=== PATIENT | male | born 1985 | race Caucasian/White ===

== ENCOUNTER 2021-02-23 08:37 | Outpatient (REF) | payer MEDICARE, SELFPAY ==
[2021-02-23 11:42] LABS: Appearance Urine CLEAR; Glucose Urine UA NEG (NEG); Leukocyte Esterase Urine NEG (NEG); Nitrite Urine NEG (NEG); PH 6.5 (5.0-8.0); Specific Gravity - Urine <= 1.005 (1.005-1.025); Urine Blood NEG (NEG); Urine Ketones NEG (NEG); Urine Protein NEG (NEG-TRACE)
[2021-02-23 11:44] LABS: Color Urine COLORLESS
[2021-02-23 12:04] LABS: Alanine Aminotransferase 37 U/L (0-40); Albumin Level 4.3 g/dL (3.5-5.0); Alkaline Phosphatase 76 U/L (39-117); Anion Gap 10 (12-20); Aspartate Amino Transferase 25 U/L (5-37); Bilirubin Total 0.6 mg/dL (0.0-1.0); Blood Urea Nitrogen 14 mg/dL (9-16); Calcium 9.4 mg/dL (8.4-10.2); Carbon Dioxide 27 mmol/L (22-29); Chloride 105 mmol/L (96-108); Cholesterol 199 mg/dL; Estimated Glomerular Filt Rate > 60; Glucose Fasting 90 mg/dL (60-99); HDL Cholesterol 42 mg/dL; LDL Cholesterol Calculated 130 mg/dl; Potassium 4.2 mmol/L (3.3-5.1); Sodium 138 mmol/L (135-145); Total Protein 6.9 g/dL (6.5-8.0); Triglycerides 137 mg/dL
[2021-02-23 12:07] LABS: TSH reflex Free T4 1.48 uIU/mL (0.32-4.0)
== END 2021-02-23 08:38 | disposition home or self-care (01) ==
LOC: HO.HMGCLDS 08:37
PROVIDERS: PCP Nurse Practitioner Family; Visit Provider Nurse Practitioner Family
DX: Z00.00 Encounter for general adult medical examination without abnormal findings (principal)
CPT/HCPCS: 36415; 80053; 80061; 81003; 84443

== ENCOUNTER 2022-02-27 08:12 | Outpatient (REF) | payer BC, SELFPAY ==
[2022-02-27 11:16] LABS: MANUAL DIFF FLAG NO
[2022-02-27 11:27] LABS: Basophils Percent Auto 0.5 % (0-2); Eosinophils Absolute Auto 0.1 X10*3/uL (0.0-0.4); Eosinophils Percent Auto 2.2 % (0-4); Hematocrit 47.4 % (42.0-52.0); Hemoglobin 15.9 g/dl (14.0-18.0); Imm Gran Abs Auto 0.02 X10*3/uL (0.00-0.03); Imm Gran Pct Auto 0.4 % (0.0-0.4); Lymphocytes Absolute Auto 1.4 X10*3/uL (1.2-4.9); Lymphocytes Percent Auto 26.4 % (20-40); Mean Corpuscular HGB Conc 33.5 g/dl (31.0-36.0); Mean Corpuscular Hemoglobin 29.7 pg (27.0-33.0); Mean Corpuscular Volume 88.4 fL (80.0-98.0); Mean Platelet Volume 10.7 fL (9.4-12.4); Monocytes Absolute Auto 0.6 X10*3/uL (0.1-1.2); Monocytes Percent Auto 10.1 % (2-11); Neutrophils Absolute Auto 3.3 x10*3/uL (2.0-8.3); Neutrophils Percent Auto 60.4 % (45-73); Platelet Count 269 X10*3/uL (160-400); Red Blood Count 5.36 X10*6/uL (4.60-5.80); Red Cell Distribution Width 12.4 % (11.0-16.0); White Blood Count 5.5 X10*3/uL (4.8-10.8)
[2022-02-27 11:43] LABS: Appearance Urine Clear; Color Urine Yellow; Glucose Urine UA Negative (Negative); Leukocyte Esterase Urine Negative (Negative); Nitrite Urine Negative (Negative); PH 6.5 (5.0-9.0); Urine Blood Negative (Negative); Urine Ketones Negative (Negative); Urine Protein Negative (Neg-Trace)
[2022-02-27 11:59] LABS: Alanine Aminotransferase 35 U/L (0-40); Albumin Level 4.5 g/dL (3.5-5.0); Alkaline Phosphatase 90 U/L (39-117); Anion Gap 11 (12-20); Aspartate Amino Transferase 27 U/L (5-37); Bilirubin Total 0.6 mg/dL (0.0-1.0); Blood Urea Nitrogen 14 mg/dL (9-16); Calcium 9.5 mg/dL (8.4-10.2); Carbon Dioxide 26 mmol/L (22-29); Chloride 105 mmol/L (96-108); Cholesterol 188 mg/dL; Estimated Glomerular Filt Rate > 60; Glucose Fasting 95 mg/dL (60-99); HDL Cholesterol 41 mg/dL; LDL Cholesterol Calculated 113 mg/dl; Potassium 4.1 mmol/L (3.3-5.1); Sodium 138 mmol/L (135-145); TSH reflex Free T4 1.49 uIU/mL (0.32-4.0); Total Protein 7.3 g/dL (6.5-8.0); Triglycerides 171 mg/dL
[2022-03-01 19:49] LABS: Follicle Stimulating Hormone 1.3 mIU/mL (1.6-8.0)
[2022-03-06 15:09] LABS: Testosterone, Free 70.8 pg/mL (35.0-155.0); Testosterone, Total 409 ng/dL (250-1100)
== END 2022-02-27 08:13 | disposition home or self-care (01) ==
LOC: HO.HMGCLDS 08:12
PROVIDERS: PCP Nurse Practitioner Family; Visit Provider Nurse Practitioner Family
DX: Z00.00 Encounter for general adult medical examination without abnormal findings (principal); N52.9 Male erectile dysfunction, unspecified
CPT/HCPCS: 36415; 80053; 80061; 81003; 83001; 83002; 84402; 84403; 84443; 85025

== ENCOUNTER → 2022-05-02 12:49 | Outpatient (BNVA) | payer BC, SELFPAY | PROVIDERS: PCP Nurse Practitioner Family; Visit Provider Nurse Practitioner Family | DX: Z13.89 Encounter for screening for other disorder (principal) ==

== ENCOUNTER → 2022-05-14 08:41 | Outpatient (BNVA) | payer BC, SELFPAY | PROVIDERS: PCP Nurse Practitioner Family; Visit Provider Nurse Practitioner Family | DX: Z13.89 Encounter for screening for other disorder (principal) ==

== ENCOUNTER → 2022-05-29 09:02 | Outpatient (REF) | payer BC, SELFPAY | LOC: HO.SL 09:02 | PROVIDERS: PCP Nurse Practitioner Family; Visit Provider Nurse Practitioner Family | DX: G47.33 Obstructive sleep apnea (adult) (pediatric) (principal); R06.83 Snoring; I10 Essential (primary) hypertension | CPT/HCPCS: 95806 ==

== ENCOUNTER 2022-08-08 08:09 | Outpatient (REF) | payer BC, SELFPAY ==
[2022-08-16 23:13] LABS: Estradiol Ultra Sensitive 24 pg/mL (< OR = 29)
[2022-08-27 13:49] LABS: Testosterone, Total 300 ng/dL (250-1100)
== END 2022-08-08 08:10 | disposition home or self-care (01) ==
LOC: HO.HMGCLDS 08:09
PROVIDERS: Nurse Practitioner Family; PCP Nurse Practitioner Family; Visit Provider Nurse Practitioner Family
DX: N52.9 Male erectile dysfunction, unspecified (principal)
CPT/HCPCS: 36415; 82670; 84402; 84403

== ENCOUNTER → 2022-08-14 08:53 | Outpatient (BNVA) | payer BC, SELFPAY | PROVIDERS: PCP Nurse Practitioner Family; Visit Provider Nurse Practitioner Family ==

== ENCOUNTER 2022-11-15 09:28 | Outpatient (AMB) | payer BC, SELFPAY ==
--- NOTE | 2022-11-15 09:34 | A.OFFVIS_ITS ---
Intake Vital Signs 11/15/22 09:36 Weight 297 lb BP 128/86 Blood Pressure Location Lt brachial Position Sitting Pulse 68 Pulse Source Pulse Oximeter Pulse Oximetry (%) 98 Oxygen Delivery Method Room Air Intake Visit Reasons: Snoring follow up-Confirmed Intake Note: F/U sleep apnea Slasher Required: No Allergies No Known Allergies Allergy (Verified 11/15/22 09:34) HPI HPI Comments History of Present Illness Details 37 y/o male patient presents for follow up of sleep study. The home sleep study result was significant for mild degree of sleep apena. The AHI was 5/hr and oxygen hernán was 85%. Pt started APAP [id number]. The CPAP compliance and therapy response (10/16/22-) reviewed. The usage days 40% and the average usage hours 6 hrs. Pt reports he traveled to and forgot to bring CPAP. Pt states that he sleeps much better, not waking up in the middle of night and having more energy during daytime when he uses CPAP at night. Sometimes he falls asleep without CPAP when he sleeps with his son. [facility] Surgical History History of repair of vocal cord Social History (Updated 11/15/22 @ 09:36 by Mirna Núñez [facility]) Housing: House Alcohol intake: current Patient Tobacco Use Status: Current someday Tobacco user Tobacco use type: Cigar Cigarette Packs Per Day: 1 e-Cigarette/Vaping Use: Never Used Second Hand Smoke Exposure: No service: No Current occupational status: employed Current occupation: [employer] Current occupational exposures/hazards: No Cognitive needs: No Hearing needs: No Vision needs: No Review of Systems Const All systems reviewed & are unremarkable except as noted in HPI and below ENT Reports Normal hearing present Neuro Reports Normal hearing present Physical Exam Vital Signs: Last Vital Signs Pulse 68 11/15/22 09:36 BP 128/86 11/15/22 09:36 Pulse Ox 98 11/15/22 09:36 Oxygen Delivery Method Room Air 11/15/22 09:36 Const General: cooperative Nutritional Appearance: obese Orientation/consciousness: patient oriented x3 HEENT Throat: Yes other (mallampati grade 3) Neck Neck: Yes full ROM and Yes supple Resp Effort & Inspection: normal respiratory effort and able to speak in complete sentences Neuro General: patient oriented x3, gait normal and moves all extremities Cranial nerves: Yes Bilaterally intact EOM present, Yes Normal facial strength present, Yes Midline tongue present, Yes Symmetric palate elevation present, Yes Normal hearing present and Yes Ability to bilaterally rotate head present Cognition (Neuro): normal cognition Gait exam (Neuro): Normal gait present Motor exam (neuro): 5/5 motor strength present throughout, Pronator motor function not present and no tremor noted Psych Appearance: grossly normal Speech and movement: Normal speech and movement present Affect: normal affect Assessment & Plan Assessment & Plan (1) ALEXA (obstructive sleep apnea): Comment: Mild degree of sleep apnea. The AHI was 5/hr and oxygen hernán was 85%. Code(s): G47.33 - Obstructive sleep apnea (adult) (pediatric) Plan Advised patient to continue to use APAP [id number] as patient experiences good clinical effects. Stressed compliance, use CPAP nightly and more than 4hrs. Clean mask and tubing regularly. Wt reduction advised. Coding Level of Care Code Est Pt Level 3 (55584) Diagnoses ALEXA (obstructive sleep apnea) G47.33
[2022-11-15 09:36] VITALS: BP 128/86; PULSE 68; O2SAT 98
== END 2022-11-15 09:49 | disposition home or self-care (01) ==
PROVIDERS: PCP Nurse Practitioner Family; Visit Provider Nurse Practitioner Family
DX: G47.33 Obstructive sleep apnea (adult) (pediatric) (principal)
CPT/HCPCS: 99213

== ENCOUNTER → 2022-11-15 09:28 | Outpatient (BNVA) | payer BC, SELFPAY | PROVIDERS: PCP Nurse Practitioner Family; Visit Provider Nurse Practitioner Family ==

== ENCOUNTER 2023-02-11 09:12 | Outpatient (AMB) | payer BC, SELFPAY ==
--- NOTE | 2023-02-11 09:16 | MHC.OFFVIS ---
Intake Intake Visit Reasons: 6 month follow up Intake Note: Patient is present for follow up erectile dysfunction Urology Medications: tadalafil Blood Thinner: none Artificial Limb Fitter Required: No Accompanied by: Self / Same As Patient Allergies No Known Allergies Allergy (Verified 02/11/23 09:55) Medication List - Last Reconciled 02/11/23 by KAMRYN Garcia tadalafil (Cialis) 5 mg PO DAILY 90 days HPI HPI Comments History of Present Illness Details Michael is a pleasant 37 year old male patient of Dr. Mar. Has a past medical history of sleep apnea. Patient presents to the office today follow-up of his erectile dysfunction. In discussion with the patient today he reports to be doing and feeling well. He reports noting significant improvement in maintaining erections with 5 mg of Cialis daily however has recently ran out of refills. He otherwise offers no issues or concerns at this time. He denies urinary urgency, urinary frequency, incontinence, nocturia, hematuria, dysuria, foul smelling urine, changes to urinary stream, flank pain, fever, and or chills. He discusses at length his 's upcoming gynecological appointments regarding abnormal findings noted on recent bankruptcy legal assistant exam. He discusses since last visit he has also lost approximately 30 lb. He continues to work with compliance of CPAP machine. He denies any issues with his urination. In office urinalysis results reviewed with the patient today. Discussed at length the importance of diet control as well as regular exercise to further assist with weight management. Discussed the affects of being overweight and potential cause of ED by damaging blood vessels, decreasing testosterone, and causing general inflammation throughout the body. Discussed overweight can cause damage to blood vessels due to associated hypertension, diabetes, and hypercholesteremia as well as many other issues. Previous labs are as follows: 03/01 FSH--1.3 LH--2.0 Total Testosterone-- 409 Free Testosterone-- 70.8 08/30-- Estradiol--24 Total testosterone--300 Free testosterone--57.0 He otherwise offers no issues or concerns at this time. [facility] Surgical History History of repair of vocal cord Social History Housing: House Alcohol intake: current Patient Tobacco Use Status: Current someday Tobacco user Tobacco use type: Cigar Cigarette Packs Per Day: 1 e-Cigarette/Vaping Use: Never Used Second Hand Smoke Exposure: No service: No Current occupational status: employed Current occupation: [employer] Current occupational exposures/hazards: No Cognitive needs: No Hearing needs: No Vision needs: No Review of Systems Const All systems reviewed & are unremarkable except as noted in HPI and below Reports as per HPI Eyes Reports no additional complaints ENT Reports no additional complaints Card Reports no additional complaints Resp Reports no additional complaints GI Reports no additional complaints Reports as per HPI Musc Reports no additional complaints Neuro Reports no additional complaints Psych Reports no additional complaints Endo Reports no additional complaints Jaren/Lymph Reports no additional complaints Aller/Immun Reports no additional complaints Physical Exam Const General: cooperative, healthy appearing, comfortable, no acute distress, well developed, alert and awake Nutritional Appearance: overweight Orientation/consciousness: patient oriented x3 Limitations: no limitations HEENT Head: Yes normal to inspection, Yes normocephalic and Yes atraumatic Ears: hearing grossly normal bilaterally Eyes General: appearance normal, both eyes and all related structures Neck Neck: Yes normal visual inspection and Yes trachea midline Chest Chest palpation & inspection: normal inspection of the chest Resp Effort & Inspection: normal respiratory effort and able to speak in complete sentences Cardio Rate: regular rate GI Inspection: Yes normal to inspection General: Yes no CVA tenderness Back/Spine/Pelvis Back: no CVA tenderness Skin General skin exam: no rashes or lesions noted Neuro General: patient oriented x3 Extrem General: Yes normal to inspection Psych Appearance: grossly normal and well kempt Mental Status: mental status grossly normal Speech and movement: Normal speech and movement present and Clear speech present Affect: normal affect Attitude: cooperative Thought process: Normal thought process present Thought content: Normal thought content present Insight: Fair insight present (Psych) Judgement: Fair judgement present (Psych) Results AMB Urinalysis, Automated UA Leukoctes 0 Marla/uL Last Edit by Eugenio Easton on 02/11/23 09:35 UA Nitrite Negative Last Edit by Eugenio Easton on 02/11/23 09:35 UA Urobilinogen 0.2 mg/dL Last Edit by Eugenio Easton on 02/11/23 09:35 UA Protein 0 mg/dL Last Edit by Eugenio Easton on 02/11/23 09:35 UA pH 7.5 Last Edit by Andrewnicola Sarahyennifer on 02/11/23 09:35 UA Blood 0 Esteban/uL Last Edit by Eugenio Sarahyennifer on 02/11/23 09:35 UA Specific [place] 1.010 Last Edit by Eugenio Easton on 02/11/23 09:35 UA Ketone Negative Last Edit by Eugenio Sarahyennifer on 02/11/23 09:35 UA Bilirubin 0 mg/dL Last Edit by Eugenio Sarahyennifer on 02/11/23 09:35 UA Glucose 0 mg/dL Last Edit by Eugenio Easton on 02/11/23 09:35 Results Reviewed Results Reviewed: Laboratory Last Values Urine pH (Auto) 7.5 02/11/23 09:23 Specific [place] (Auto) 1.010 02/11/23 09:23 Urine Protein (Auto) 0 mg/dL 02/11/23 09:23 Glucose (UA)(Auto) 0 mg/dL 02/11/23 09:23 Urine Ketones (Auto) Negative 02/11/23 09:23 Urine Blood (Auto) 0 Esteban/uL 02/11/23 09:23 Urine Nitrite (Auto) Negative 02/11/23 09:23 Urine Bilirubin (Auto) 0 mg/dL 02/11/23 09:23 Urine Urobilinogen (Auto) 0.2 mg/dL 02/11/23 09:23 Leukocyte Esterase (Auto) 0 Marla/uL 02/11/23 09:23 Assessment & Plan Assessment & Plan (1) Erectile dysfunction: Code(s): N52.9 - Male erectile dysfunction, unspecified Plan In office urinalysis results reviewed with the patient today; as noted above. Patient reports significant improvement and erectile dysfunction symptoms on low-dose Cialis; Continue with lifestyle modifications of adequate sleep, weight management, exercise, and compliance with CPAP machine Continue Cialis 5 mg daily; refill provided Testosterone free and total in 6 months Follow-up in 6 months with labs to be completed prior; if not sooner with any issues, concerns, and or questions. Orders: Orders AMB Urinalysis Automated Today Z13.9 - Encounter for screening, unspecified Testosterone, Free/Total 6 Months E11.69 - Type 2 diabetes mellitus with other specified complication, N52.1 - Erectile dysfunction due to diseases classified elsewhere Medications: Refilled tadalafil (Cialis) [facility] [id number] 5 mg PO DAILY 90 days 90 tabs 4RF Patient Instructions: The patient had an opportunity to ask questions regarding the treatment plan. All questions were answered. Physical exam, labs, and imaging were discussed and reviewed in detail. As well as risks, benefits, and discussion of treatment choices. No major barriers to understanding were identified. The patient expressed understanding and agreement with the above treatment plan. The patient was made aware they should contact our office by phone for worsening of their current condition, the appearance of new symptoms, or with any questions or concerns. Compliance is encouraged with any medications and follow up testing that is ordered. It is a privilege to be allowed the opportunity to participate in? your urological care.? Again, if you have any questions or concerns If you have any questions or concerns please do not hesitate to contact me. The office is [phone]. This note is constructed using voice recognition software. While every effort has been made to ensure accuracy chief digital media officer errors may have been included. Yours sincerely, KAMRYN Garcia Coding Level of Care Code Est Pt Level 3 (45782) Diagnoses Erectile dysfunction N52.9
== END 2023-02-11 09:54 | disposition home or self-care (01) ==
PROVIDERS: PCP Nurse Practitioner Family; Visit Provider Nurse Practitioner Family
DX: N52.9 Male erectile dysfunction, unspecified (principal); Z13.9 Encounter for screening, unspecified
CPT/HCPCS: 99213

== ENCOUNTER → 2023-02-11 09:12 | Outpatient (BNVA) | payer BC, SELFPAY | PROVIDERS: PCP Nurse Practitioner Family; Visit Provider Nurse Practitioner Family | DX: N52.9 Male erectile dysfunction, unspecified (principal); Z79.899 Other long term (current) drug therapy | CPT/HCPCS: 81003 ==

== ENCOUNTER 2023-03-05 07:23 | Outpatient (AMB) | payer BC, SELFPAY ==
--- NOTE | 2023-03-05 07:26 | A.OFFPC_ITS ---
Vital Signs 03/05/23 07:29 Height 6 ft 3 in Weight 309 lb BMI 38.6 BP 122/80 Blood Pressure Location Rt brachial Position Sitting Pulse 82 Pulse Source Pulse Oximeter Pulse Oximetry (%) 97 Oxygen Delivery Method Room Air Intake Visit Reasons: annual PE Intake Note: Patient here for physical exam. Allergies No Known Allergies Allergy (Verified 03/05/23 08:02) Medication List - Last Reconciled 03/05/23 by KAMRYN Oliveros tadalafil (Cialis) 5 mg PO DAILY 90 days Tobacco use date assessed: 08/28/22 Dental Screening Dental Screen Date: 03/05/23 Did you have a dental visit in the last 12 months?: Yes Did you have a dental problem in the last 6 months where you did not have access to dental care?: No Was dental information given to patient?: Patient has dentist HPI annual PE HPI Details Pt is here for a PE. Labs have already been ordered. [facility] Surgical History History of repair of vocal cord Social History Housing: House Alcohol intake: current Patient Tobacco Use Status: Current someday Tobacco user Tobacco use type: Cigar Cigarette Packs Per Day: 1 e-Cigarette/Vaping Use: Never Used Second Hand Smoke Exposure: No service: No Current occupational status: employed Current occupation: [employer] Current occupational exposures/hazards: No Cognitive needs: No Hearing needs: No Vision needs: No Questionnaire Thrive Questionnaire Date Thrive assessed: 02/27/22 I am a: Patient What is your living situation today?: I have a steady place to live Within the past 12 months, did the food you bought not last and you didn't have the money to get more?: Never true Within the past 12 months, did you worry whether your food would run out before you got money to buy more?: Never true AUDIT C Alcohol Use Questionnaire (AUDIT-C) 1. How often do you have a drink containing alcohol?: 4 or more times a week 2. How many drinks containing alcohol do you have on a typical day when you are drinking?: 1 or 2 3. How often do you have six or more drinks on one occasion?: Less than monthly Total Score: 5 Score Reviewed/Action Taken: Yes ASHOK-7 AMB Questionnaire ASHOK-7 Date ASHOK - 7 assessed: 02/27/22 Feeling nervous, anxious, or on edge: 0 = Not at all Not being able to stop or control worryin = Several days Worrying too much about different things: 0 = Not at all Trouble relaxin = Not at all Being so restless that it is hard to sit still: 0 = Not at all Becoming easily annoyed or irritable: 1 = Several days Feeling afraid as if something awful might happen: 0 = Not at all Total ASHOK-7 score (0-4 normal; 5-9 mild; 10-14 moderate; 15-21 severe): 2 Source: Developed by Drs. Raheel Parish, Smitha Suazo, Eric Guy and colleagues, with an educational daryl from [employer]. Review of Systems Const Denies chills and Denies fever(s) Eyes Denies blurry vision ENT Denies vertigo, Denies dizziness and Denies sore throat Card Denies chest pain at rest, Denies chest pain with activity, Denies diaphoresis, Denies dyspnea and Denies dyspnea on exertion Resp Denies cough, Denies dyspnea, Denies dyspnea on exertion and Denies wheezing GI Denies abdominal pain, Denies melena, Denies hematochezia, Denies constipation, Denies diarrhea and Denies loose stools Denies hematuria Musc Denies numbness and Denies tingling Skin/Breast Denies lesions Neuro Denies vertigo, Denies dizziness, Denies numbness and Denies tingling Psych Denies anxiety, Denies depression, Denies homicidal ideation, Denies suicidal ideation and Denies other (substance abuse) Aller/Immun Denies wheezing Physical exam (Primary Care) Vital Signs: Last Vital Signs Pulse 82 03/05/23 07:29 BP 122/80 03/05/23 07:29 Pulse Ox 97 03/05/23 07:29 Oxygen Delivery Method Room Air 03/05/23 07:29 BMI result Body Mass Index 38.6 Tobacco/Smoking Status: Tobacco use Status Tobacco use date assessed 08/28/22 03/05/23 07:28 Patient Tobacco Use Status Current someday Tobacco 03/05/23 07:28 Tobacco use type Cigar 03/05/23 07:28 e-Cigarette/Vaping Use Never Used 03/05/23 07:28 Thrive Assessment: Date of Thrive Assessment Date Thrive assessed 02/27/22 03/05/23 07:28 Const General: cooperative Nutritional Appearance: obese Orientation/consciousness: patient oriented x3 HENMT Head: Yes normal to inspection, Yes normocephalic and Yes atraumatic Ears: TM's normal bilaterally Eyes General: appearance normal, both eyes and all related structures Alignment and Position: alignment normal and position normal Neck Neck: Yes normal visual inspection and Yes no lymphadenopathy Thyroid: Thyroid normal Resp Effort & Inspection: normal respiratory effort Auscultation: clear to auscultation bilaterally Cardio Rate: regular rate Rhythm: regular rhythm Heart sounds: S1 normal heart sound present, S2 normal heart sound present and no murmurs GI Palpation (GI): Soft to palpation and nontender Auscultation: normal bowel sounds Male General Exam: Yes normal external exam Penis: normal penis Scrotum: scrotum normal, testes descended bilaterally and no inguinal hernias Testes: no testicular mass Skin Rashes: no rashes Neuro General: patient oriented x3, moves all extremities, no focal motor deficits and deep tendon reflexes 2+ bilaterally Romberg Test: Negative Psych Appearance: grossly normal Mental Status: mental status grossly normal Speech and movement: Normal speech and movement present Affect: normal affect Attitude: cooperative Thought process: Normal thought process present Thought content: Normal thought content present Insight: Good insight present (Psych) Judgement: Good judgement present (Psych) Assessment and Plan Assessment & Plan (1) Physical exam: Code(s): Z00.00 - Encounter for general adult medical examination without abnormal findings Plan: Labs already ordered Plan The patient agreed to the use of a medical device sales representative for this encounter. Scribed for KAMRYN Leon by Celia Carver medical device sales representative, on 03/05/2023 at 07:45 EST. Coding Level of Care Code Est Pt Prev Care 18-39y(84194) Diagnoses Physical exam Z00.00
[2023-03-05 07:29] VITALS: BP 122/80; PULSE 82; O2SAT 97; BMI 38.6
== END 2023-03-05 07:54 | disposition home or self-care (01) ==
PROVIDERS: Visit Provider Nurse Practitioner Family
DX: Z00.00 Encounter for general adult medical examination without abnormal findings (principal)
CPT/HCPCS: 99395

== ENCOUNTER 2023-05-12 08:48 | Outpatient (AMB) | payer BC, SELFPAY ==
--- NOTE | 2023-05-12 08:49 | MHC.OFFVIS ---
Intake Vital Signs 05/12/23 08:55 Height 6 ft 3 in Weight 304 lb 8 oz BMI 38.1 BP 130/80 Blood Pressure Location Lt brachial Position Sitting Pulse 58 Pulse Source Pulse Oximeter Pulse Oximetry (%) 99 Oxygen Delivery Method Room Air Intake Visit Reasons: 6M Snoring f/u - LVM w/address Intake Note: Patient presents for 6 month F/u. Allergies No Known Allergies Allergy (Verified 05/12/23 08:54) HPI HPI Comments History of Present Illness Details 37 y/o male patient presents for follow up of sleep study. The home sleep study result was significant for a mild degree of sleep apnea. The AHI was 5/hr and oxygen hernán was 85%. Pt started APAP [id number]. The CPAP compliance and therapy response (02/06/23-05/06/23) reviewed. The usage days 70% and the average usage hours 5 hrs 40 min. The max pressure was 10.8 and the residual AHI was 0.4/hr. Pt reports he sleeps well with CPAP, not waking up in the middle of night. He can sleep from 10 pm to 6 am, wakes up refreshed and daytime sleepiness has resolved. However, he forgets to put CPAP at night somtimes. [facility] Surgical History History of repair of vocal cord Social History Housing: House Alcohol intake: current Patient Tobacco Use Status: Current someday Tobacco user Tobacco use type: Cigar Cigarette Packs Per Day: 1 e-Cigarette/Vaping Use: Never Used Second Hand Smoke Exposure: No service: No Current occupational status: employed Current occupation: [employer] Current occupational exposures/hazards: No Cognitive needs: No Hearing needs: No Vision needs: No Review of Systems Const All systems reviewed & are unremarkable except as noted in HPI and below ENT Reports Normal hearing present Neuro Reports Normal hearing present Physical Exam Vital Signs: Last Vital Signs Pulse 58 05/12/23 08:55 BP 130/80 05/12/23 08:55 Pulse Ox 99 05/12/23 08:55 Oxygen Delivery Method Room Air 05/12/23 08:55 BMI result Body Mass Index 38.1 Const General: cooperative Nutritional Appearance: obese Orientation/consciousness: patient oriented x3 HEENT Throat: Yes other (mallampati grade 3) Neck Neck: Yes full ROM and Yes supple Resp Effort & Inspection: normal respiratory effort and able to speak in complete sentences Neuro General: patient oriented x3, gait normal and moves all extremities Cranial nerves: Yes Bilaterally intact EOM present, Yes Normal facial strength present, Yes Midline tongue present, Yes Symmetric palate elevation present, Yes Normal hearing present and Yes Ability to bilaterally rotate head present Cognition (Neuro): normal cognition Gait exam (Neuro): Normal gait present Motor exam (neuro): 5/5 motor strength present throughout, Pronator motor function not present and no tremor noted Psych Appearance: grossly normal Speech and movement: Normal speech and movement present Affect: normal affect Assessment & Plan Assessment & Plan (1) ALEXA (obstructive sleep apnea): Comment: Mild degree of sleep apnea. The AHI was 5/hr and oxygen hernán was 85%. Code(s): G47.33 - Obstructive sleep apnea (adult) (pediatric) Plan Continue to use APAP at [id number] as patient experiences good clinical effects, sleep quality and daytime sleepiness has improved. Stressed compliance, use CPAP nightly and more than 4 hrs. Wt reduction advised. Coding Level of Care Code Est Pt Level 3 (74550) Diagnoses ALEXA (obstructive sleep apnea) G47.33
[2023-05-12 08:55] VITALS: BP 130/80; PULSE 58; O2SAT 99; BMI 38.1
== END 2023-05-12 09:09 | disposition home or self-care (01) ==
PROVIDERS: PCP Nurse Practitioner Family; Visit Provider Nurse Practitioner Family
DX: G47.33 Obstructive sleep apnea (adult) (pediatric) (principal)
CPT/HCPCS: 99213

== ENCOUNTER → 2023-05-12 08:48 | Outpatient (BNVA) | payer BC, SELFPAY | PROVIDERS: PCP Nurse Practitioner Family; Visit Provider Nurse Practitioner Family ==

== ENCOUNTER 2023-08-08 08:49 | Outpatient (REF) | payer BC, SELFPAY ==
[2023-08-08 10:15] LABS: MANUAL DIFF FLAG NO
[2023-08-08 10:32] LABS: Basophils Percent Auto 0.4 % (0-2); Eosinophils Absolute Auto 0.1 X10*3/uL (0.0-0.4); Eosinophils Percent Auto 1.1 % (0-4); Hematocrit 45.5 % (42.0-52.0); Hemoglobin 15.4 g/dl (14.0-18.0); Imm Gran Abs Auto 0.01 X10*3/uL (0.00-0.03); Imm Gran Pct Auto 0.2 % (0.0-0.4); Lymphocytes Absolute Auto 1.4 X10*3/uL (1.2-4.9); Lymphocytes Percent Auto 29.8 % (20-40); Mean Corpuscular HGB Conc 33.8 g/dl (31.0-36.0); Mean Corpuscular Hemoglobin 30.2 pg (27.0-33.0); Mean Corpuscular Volume 89.2 fL (80.0-98.0); Mean Platelet Volume 10.3 fL (9.4-12.4); Monocytes Absolute Auto 0.5 X10*3/uL (0.1-1.2); Monocytes Percent Auto 9.8 % (2-11); Neutrophils Absolute Auto 2.7 x10*3/uL (2.0-8.3); Neutrophils Percent Auto 58.7 % (45-73); Platelet Count 235 X10*3/uL (160-400); Red Cell Distribution Width 12.9 % (11.0-16.0); White Blood Count 4.6 X10*3/uL (4.8-10.8)
[2023-08-08 10:36] LABS: Appearance Urine Clear; Color Urine Yellow; Glucose Urine UA Negative (Negative); Leukocyte Esterase Urine Negative (Negative); Nitrite Urine Negative (Negative); Specific Gravity - Urine <= 1.005 (1.005-1.025); Urine Blood Negative (Negative); Urine Ketones Negative (Negative); Urine Protein Negative (Neg-Trace)
[2023-08-08 10:55] LABS: Alanine Aminotransferase 35 U/L (0-40); Albumin Level 4.4 g/dL (3.5-5.0); Alkaline Phosphatase 70 U/L (39-117); Anion Gap 12 (12-20); Aspartate Amino Transferase 25 U/L (5-37); Bilirubin Total 0.5 mg/dL (0.0-1.0); Blood Urea Nitrogen 11 mg/dL (9-16); Calcium 9.5 mg/dL (8.4-10.2); Carbon Dioxide 24 mmol/L (22-29); Chloride 107 mmol/L (96-108); Cholesterol 206 mg/dL (<200); Estimated Glomerular Filt Rate > 60; Glucose Fasting 98 mg/dL (60-99); HDL Cholesterol 46 mg/dL (>40); LDL Cholesterol Calculated 135 mg/dL (<100); Potassium 4.1 mmol/L (3.3-5.1); Sodium 139 mmol/L (135-145); Total Protein 7.2 g/dL (6.5-8.0); Triglycerides 125 mg/dL (<150)
[2023-08-08 11:01] LABS: TSH reflex Free T4 1.42 uIU/mL (0.32-4.0)
[2023-08-13 21:08] LABS: Testosterone, Total 451 ng/dL (250-1100)
== END 2023-08-08 08:50 | disposition home or self-care (01) ==
LOC: HO.HMGCLDS 08:49
PROVIDERS: PCP Nurse Practitioner Family; Referring Provider Nurse Practitioner Family; Visit Provider Nurse Practitioner Family
DX: I10 Essential (primary) hypertension (principal); E11.69 Type 2 diabetes mellitus with other specified complication; N52.1 Erectile dysfunction due to diseases classified elsewhere
CPT/HCPCS: 36415; 80053; 80061; 81003; 84402; 84403; 84443; 85025

== ENCOUNTER 2023-10-03 12:21 | Outpatient (AMB) | payer BC, SELFPAY ==
--- NOTE | 2023-10-03 12:25 | MHC.OFFWIV ---
Intake Vital Signs 10/03/23 12:27 Height 6 ft 3 in Weight 315 lb BMI 39.4 BP 124/82 Blood Pressure Location Lt brachial Position Sitting Pulse 73 Pulse Source Pulse Oximeter Temp 98.1 F Temp Source Oral Pulse Oximetry (%) 98 Oxygen Delivery Method Room Air Intake Visit Reasons: Rt knee pain/fell 2.5 wks ago Intake Note: pt c/o RT knee pain due to fall 2 1/2 weeks ago Patient Tobacco Use Status: Current someday Tobacco user Allergies No Known Allergies Allergy (Verified 10/03/23 12:27) Do you need a note to return to daycare/school/sports/work: No HPI Rt knee pain/fell 2.5 wks ago HPI Details This note is constructed using voice recognition software. While every effort has been made to ensure accuracy, firewall administrator errors may have been included. The patient is a 38 year old male who presents to the clinic today with right knee pain after fall 2 and half weeks ago. He fell twisting his left ankle and landing directly on his right knee. Notes that he initially had some bruising to the kneecap, and some moderate pain with some pain worse with climbing up or downstairs, however has otherwise had no pain with walking. He denies any difficulty with range of motion, strength, but the pain has not completely resolved. [facility] Surgical History History of repair of vocal cord Social History Housing: House Alcohol intake: current Patient Tobacco Use Status: Current someday Tobacco user Tobacco use type: Cigar Cigarette Packs Per Day: 1 e-Cigarette/Vaping Use: Never Used Second Hand Smoke Exposure: No service: No Current occupational status: employed Current occupation: [employer] Current occupational exposures/hazards: No Cognitive needs: No Hearing needs: No Vision needs: No Review of Systems Const All systems reviewed & are unremarkable except as noted in HPI and below Physical Exam Vital Signs: Last Vital Signs Temp 98.1 F 10/03/23 12:27 Pulse 73 10/03/23 12:27 BP 124/82 10/03/23 12:27 Pulse Ox 98 10/03/23 12:27 Oxygen Delivery Method Room Air 10/03/23 12:27 BMI result Body Mass Index 39.4 Const General: cooperative, healthy appearing, comfortable, no acute distress and alert Orientation/consciousness: patient oriented x3 Limitations: no limitations Skin General skin exam: no rashes or lesions noted, elasticity normal and turgor normal Neuro General: patient oriented x3 Extrem Other: Right knee full range of motion, negative for laxity of ligaments, no area of tenderness on exam, no erythema, no warmth, no edema. General: Yes normal to inspection, Yes full ROM, Yes capillary refill normal and Yes normal exam except as noted Right lower extremity: normal to inspection, full ROM, normal capillary refill and no joint enlargement Psych Appearance: grossly normal Mental Status: mental status grossly normal Speech and movement: Normal speech and movement present Affect: normal affect Assessment & Plan Assessment & Plan (1) Right knee pain: Code(s): M25.561 - Pain in right knee Qualifiers: Chronicity: acute Qualified Code(s): M25.561 - Pain in right knee Plan: Given nature of injury, we will obtain x-rays to rule out fracture, however highly unlikely given presentation today. Nicolas wrap provided to apply after x-ray, advised ice, rest, compression, elevation, and NSAIDs as needed. Discussed potential for knee strain, which appears to be resolving. Reviewed typical trajectory of resolution. Advised patient to follow up with ongoing or worsening symptoms. Plan See above for full details and plan. Orders: Orders XR knee RT 3V Today M25.561 - Pain in right knee Coding Level of Care Code Est Pt Level 4 (83352) Diagnoses Acute pain of right knee M25.561 Chronicity: acute
[2023-10-03 12:27] VITALS: BP 124/82; PULSE 73; TEMP 36.7; O2SAT 98; BMI 39.4
== END 2023-10-03 13:57 | disposition home or self-care (01) ==
PROVIDERS: PCP Nurse Practitioner Family; Visit Provider Registered Nurse
DX: M25.561 Pain in right knee (principal)
CPT/HCPCS: 99214

== ENCOUNTER 2023-10-03 12:49 | Outpatient (REF) | payer BC, SELFPAY ==
--- NOTE | ~2023-10-03 | XR_ITS ---
EXAMINATION: XR KNEE, RIGHT CLINICAL INFORMATION: Right knee pain. COMPARISON: None available. TECHNIQUE: Five views of the right knee. FINDINGS: No displaced fracture or significant joint effusion. Alignment is anatomic. Joint spaces are maintained. No abnormal soft tissue calcification. XR/XR knee RT 4V IMPRESSION: No acute abnormality.
== END 2023-10-03 12:50 | disposition home or self-care (01) ==
LOC: HO.HMGCX 12:49
PROVIDERS: PCP Nurse Practitioner Family; Visit Provider Registered Nurse
DX: M25.561 Pain in right knee (principal)
CPT/HCPCS: 73564

== ENCOUNTER 2023-10-08 13:08 | Outpatient (AMB) | payer BC, SELFPAY ==
--- NOTE | 2023-10-08 13:17 | A.OFFVIS_ITS ---
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 Mar. Has a past medical history of sleep apnea. Patient presents to the office today follow-up of his erectile dysfunction. In discussion with the patient today he reports to be doing and feeling well. He reports noting significant improvement in maintaining erections with 5 mg of Cialis daily. He does report his upcoming trip to [place] for work and to celebrate his 's recent completion of her bachelor's degree and nursing. He otherwise offers no issues or concerns at this time. He denies urinary urgency, urinary frequency, incontinence, nocturia, hematuria, dysuria, foul smelling urine, changes to urinary stream, flank pain, fever, and or chills. He continues to work with compliance of CPAP machine. He denies any issues with his urination. In office urinalysis results reviewed with the patient today. Discussed at length the importance of diet control as well as regular exercise to further assist with weight management. Discussed the affects of being overweight and potential cause of ED by damaging blood vessels, decreasing testosterone, and causing general inflammation throughout the body. Discussed overweight can cause damage to blood vessels due to associated hypertension, diabetes, and hypercholesteremia as well as many other issues. Previous labs are as follows: 03/01 FSH--1.3 LH--2.0 Total Testosterone-- 409 Free Testosterone-- 70.8 08/30-- Estradiol--24 Total testosterone--300 Free testosterone--57.0 07/31 Testosterone--451 Free testosterone--74.0 He otherwise offers no issues or concerns at this time. [facility] Surgical History History of repair of vocal cord Social History Housing: House Alcohol intake: current Patient Tobacco Use Status: Current someday Tobacco user Tobacco use type: Cigar Cigarette Packs Per Day: 1 e-Cigarette/Vaping Use: Never Used Second Hand Smoke Exposure: No service: No Current occupational status: employed Current occupation: [employer] Current occupational exposures/hazards: No Cognitive needs: No Hearing needs: No Vision needs: No Review of Systems Const All systems reviewed & are unremarkable except as noted in HPI and below Reports as per HPI Eyes Reports no additional complaints ENT Reports no additional complaints Card Reports no additional complaints Resp Reports no additional complaints GI Reports no additional complaints Reports as per HPI Musc Reports no additional complaints Neuro Reports no additional complaints Psych Reports no additional complaints Endo Reports no additional complaints Jaren/Lymph Reports no additional complaints Aller/Immun Reports no additional complaints Physical Exam Const General: cooperative, healthy appearing, comfortable, no acute distress, well developed, alert and awake Nutritional Appearance: overweight Orientation/consciousness: patient oriented x3 Limitations: no limitations HEENT Head: Yes normal to inspection, Yes normocephalic and Yes atraumatic Ears: hearing grossly normal bilaterally Eyes General: appearance normal, both eyes and all related structures Neck Neck: Yes normal visual inspection and Yes trachea midline Chest Chest palpation & inspection: normal inspection of the chest Resp Effort & Inspection: normal respiratory effort and able to speak in complete sentences Cardio Rate: regular rate GI Inspection: Yes normal to inspection General: Yes no CVA tenderness Back/Spine/Pelvis Back: no CVA tenderness Skin General skin exam: no rashes or lesions noted Neuro General: patient oriented x3 Extrem General: Yes normal to inspection Psych Appearance: grossly normal and well kempt Mental Status: mental status grossly normal Speech and movement: Normal speech and movement present and Clear speech present Affect: normal affect Attitude: cooperative Thought process: Normal thought process present Thought content: Normal thought content present Insight: Fair insight present (Psych) Judgement: Fair judgement present (Psych) Results AMB Urinalysis, Automated UA Leukoctes 0 Malra/uL Last Edit by Eugenio Easton on 10/08/23 13:32 UA Nitrite Negative Last Edit by Eugenio Easton on 10/08/23 13:32 UA Urobilinogen 0.2 mg/dL Last Edit by Eugenio Easton on 10/08/23 13:32 UA Protein 0 mg/dL Last Edit by Eugenio Easton on 10/08/23 13:32 UA pH 6.5 Last Edit by Eugenio Easton on 10/08/23 13:32 UA Blood 0 Esteban/uL Last Edit by Eugenio Easton on 10/08/23 13:32 UA Specific [place] 1.010 Last Edit by Eugenio Easton on 10/08/23 13:32 UA Ketone Negative Last Edit by Eugenio Easton on 10/08/23 13:32 UA Bilirubin 0 mg/dL Last Edit by Eugenio Easton on 10/08/23 13:32 UA Glucose 0 mg/dL Last Edit by Eugenio Easton on 10/08/23 13:32 Results Reviewed Results Reviewed: Laboratory Last Values Urine pH (Auto) 6.5 10/08/23 13:30 Specific [place] (Auto) 1.010 10/08/23 13:30 Urine Protein (Auto) 0 mg/dL 10/08/23 13:30 Glucose (UA)(Auto) 0 mg/dL 10/08/23 13:30 Urine Ketones (Auto) Negative 10/08/23 13:30 Urine Blood (Auto) 0 Esteban/uL 10/08/23 13:30 Urine Nitrite (Auto) Negative 10/08/23 13:30 Urine Bilirubin (Auto) 0 mg/dL 10/08/23 13:30 Urine Urobilinogen (Auto) 0.2 mg/dL 10/08/23 13:30 Leukocyte Esterase (Auto) 0 Marla/uL 10/08/23 13:30 Assessment & Plan Assessment & Plan (1) Erectile dysfunction: Code(s): N52.9 - Male erectile dysfunction, unspecified Category: Medical Plan In office urinalysis results reviewed with the patient today; as noted above. Patient reports significant improvement and erectile dysfunction symptoms on low-dose Cialis; Continue with lifestyle modifications of adequate sleep, weight management, exercise, and compliance with CPAP machine Continue Cialis 5 mg daily; refill provided Testosterone free and total in 6 months Follow-up in 6 months with labs to be completed prior; if not sooner with any issues, concerns, and or questions. Orders: Orders AMB Urinalysis Automated Today Z13.9 - Encounter for screening, unspecified Testosterone, Free/Total 6 Months N52.9 - Male erectile dysfunction, unspecified Medications: Refilled tadalafil (Cialis) [facility] [id number] 5 mg PO DAILY 90 days 90 tabs 4RF Patient Instructions: The patient had an opportunity to ask questions regarding the treatment plan. All questions were answered. Physical exam, labs, and imaging were discussed and reviewed in detail. As well as risks, benefits, and discussion of treatment choices. No major barriers to understanding were identified. The patient expressed understanding and agreement with the above treatment plan. The patient was made aware they should contact our office by phone for worsening of their current condition, the appearance of new symptoms, or with any questions or concerns. Compliance is encouraged with any medications and follow up testing that is ordered. It is a privilege to be allowed the opportunity to participate in? your urological care.? Again, if you have any questions or concerns If you have any questions or concerns please do not hesitate to contact me. The office is [phone]. This note is constructed using voice recognition software. While every effort has been made to ensure accuracy bottle sorter errors may have been included. Yours sincerely, KAMRYN Garcia Coding Level of Care Code Est Pt Level 3 (09522) Diagnoses Erectile dysfunction N52.9
== END 2023-10-08 13:38 | disposition home or self-care (01) ==
PROVIDERS: PCP Nurse Practitioner Family; Visit Provider Nurse Practitioner Family
DX: N52.9 Male erectile dysfunction, unspecified (principal); Z13.9 Encounter for screening, unspecified
CPT/HCPCS: 99213

== ENCOUNTER → 2023-10-08 13:08 | Outpatient (BNVA) | payer BC, SELFPAY | PROVIDERS: PCP Nurse Practitioner Family; Visit Provider Nurse Practitioner Family | DX: N52.9 Male erectile dysfunction, unspecified (principal); Z79.899 Other long term (current) drug therapy | CPT/HCPCS: 81003 ==

== ENCOUNTER 2024-03-23 07:21 | Outpatient (AMB) | payer BC, SELFPAY ==
--- NOTE | 2024-03-23 07:37 | A.OFFPC_ITS ---
Vital Signs 03/23/24 07:39 Height 6 ft 3 in Weight 315 lb BMI 39.4 BP 110/70 Blood Pressure Location Lt brachial Position Sitting Pulse 90 Pulse Source Pulse Oximeter Pulse Oximetry (%) 96 Intake Visit Reasons: PE Intake Note: Pt is here today for his PE Allergies No Known Allergies Allergy (Verified 03/23/24 07:41) Medication List - Last Reconciled 03/23/24 by REBECCA Oliveros-SELINA tadalafil (Cialis) 5 mg PO DAILY 90 days Tobacco use date assessed: 03/23/24 Dental Screening Dental Screen Date: 03/23/24 Did you have a dental visit in the last 12 months?: Yes Did you have a dental problem in the last 6 months where you did not have access to dental care?: No Was dental information given to patient?: Patient has dentist HPI PE HPI Details History of Present Illness The patient is a 38-year-old male presenting with chronic right knee pain. The pain began following an incident in September where he fell on concrete, impacting the patellar region of his right knee. At the time of injury, an X-ray at urgent care was negative for fractures. The patient reports persistent pain in the medial and anterior aspects of the right knee, with no significant improvement over time. He denies swelling or erythema but notes tenderness in the joint area. The pain has not been relieved by at-home stretching exercises. Nahum's test was positive, particularly on the medial aspect of the knee, indicating a potential meniscal injury. In addition, the patient is interested in exploring GLP-1 agonist therapy for weight management, which may be suitable given his high BMI. refused flu vaccine Health Maintenance - Discussion about GLP-1 agonists for we ight management in the context of the patient's obesity and high BMI. Social History - Obese with the intent to manage weight through potential use of GLP-1 agonists. Review of Systems - Musculoskeletal: Reports chronic pain in the right knee, localized to the medial and anterior aspects. - General: Denies swelling or erythema i n the knee region. Physical Exam General: Cooperative, healthy appearing, comfortable, no acute distress and well developed Orientation: Patient oriented x3 Limitations: No limitations Head: Normal to inspection Ears: Hearing grossly normal bilaterally Nose: Normal external nose present Face and sinus: Normal facial exam Eyes: Appearance normal, both eyes and all related structures Neck: Normal visual inspection and Yes full ROM Respiratory: Normal respiratory effort and able to speak in complete sentences. Clear to auscultation bilaterally Cardiovascular: Regular rate and rhythm. Normal S1 and S2 GI: Normal to inspection. Soft to palpation and nontender Skin: No rashes or lesions noted Neuro: Patient oriented x3 Extremities: Right knee with chronic pain, tender joint, positive Nahum's test on the medial aspect, negative Rusty's test. No swelling or erythema. Obese, no edema. Results - Imaging: Previous X-ray of the right k nee was negative. - Labs Ordered: Fasting labs to be obtai gabriella by the patient today. Plan - Obtain MRI of the right knee to assess for potential meniscal injury or other structural abnormalities. - Discuss with the patient options for w eight management, including conside ration of GLP-1 agonists. - Advise the patient to confirm insuranc e coverage for potential GLP-1 agonist therapy. - Provide patient with lab orders for fa sting labs to be completed today. Patient was informed and verbally consented to the use of an ambient scribe for clinic note documentation during this visit. Discussion Notes I explained to the patient that his chronic right knee pain may be due to a meniscal injury, as suggested by the positive Nahum's test, and an MRI has been ordered to further investigate the internal structures of the knee. For his obesity, I discussed the possible benefits of GLP-1 agonists for weight loss, emphasizing that these may reduce his BMI and potentially alleviate strain on his joints. I advised him to check with his insurance regarding coverage for this medication and ensured he understood the need for lifestyle modifications alongside any pharmacological interventions. The patient was encouraged to follow up with lab orders for assessment of his metabolic status. Patient Instructions - Schedule an MRI for the right knee as soon as possible. - Consider potential GLP-1 agonist thera py for weight management; verify insurance coverage. - Complete fasting labs today as ordered . - Maintain any physician-recommended lif estyle modifications and weight management strategies. [facility] Surgical History History of repair of vocal cord Social History Housing: House Alcohol intake: current Patient Tobacco Use Status: Current someday Tobacco user Tobacco use type: Cigar Cigarette Packs Per Day: 1 e-Cigarette/Vaping Use: Never Used Second Hand Smoke Exposure: No service: Yes Current occupational status: employed Current occupation: [employer] Current occupational exposures/hazards: No Cognitive needs: No Hearing needs: No Vision needs: Yes Questionnaire PHQ-9 Over the last 2 weeks, how often have you been bothered by any of the following problems? 1. Little interest or pleasure in doing things: not at all 2. Feeling down, depressed, or hopeless: several days 3. Trouble falling or staying asleep, or sleeping too much: several days 4. Feeling tired or having little energy: several days 5. Poor appetite or overeating: not at all 6. Feeling bad about yourself - or that you are a failure or have let yourself or your family down: not at all 7. Trouble concentrating on things, such as reading the newspaper or watching television: not at all 8. Moving or speaking so slowly that other people could have noticed. Or the opposite - being so fidgety or restless that you have been moving around a lot more than usual: not at all 9. Thoughts that you would be better off or of hurting yourself in some way: not at all Total score: 3 Depression Screening Interpretation: Negative Depression Screening Done: Yes 56267 - PHQ-9 Billing: Yes Source: Developed by Drs. Raheel Parish, Smitha Suazo, Eric Guy and colleagues, with an educational daryl from [employer]. Thrive Questionnaire Date Thrive assessed: 03/16/24 I am a: Patient What is your living situation today?: I have a steady place to live Within the past 12 months, did the food you bought not last and you didn't have the money to get more?: Never true Within the past 12 months, did you worry whether your food would run out before you got money to buy more?: Never true Do you have trouble paying for medicines?: No Do you have trouble getting transportation to medical appointments?: No Do you have trouble paying your heating and electricity bill?: No Do you have trouble taking care of your child, family member or friend?: No Do you have trouble with day-to-day activities such as bathing, preparing meals, shopping, managing finances, etc.?: No Are you currently unemployed and looking for a job?: No Are you interested in more education?: No Please select the resources that you would like help with: None Currently or been in a relationship where the following occur: No concerns reported THRIVE Score: 0 AUDIT C Alcohol Use Questionnaire (AUDIT-C) 1. How often do you have a drink containing alcohol?: 2-3 times a week 2. How many drinks containing alcohol do you have on a typical day when you are drinking?: 1 or 2 3. How often do you have six or more drinks on one occasion?: Less than monthly Total Score: 4 ASHOK-7 AMB Questionnaire ASHOK-7 Date ASHOK - 7 assessed: 03/23/24 Feeling nervous, anxious, or on edge: 0 = Not at all Not being able to stop or control worryin = Not at all Worrying too much about different things: 0 = Not at all Trouble relaxin = Several days Being so restless that it is hard to sit still: 0 = Not at all Becoming easily annoyed or irritable: 1 = Several days Feeling afraid as if something awful might happen: 0 = Not at all Total ASHOK-7 score (0-4 normal; 5-9 mild; 10-14 moderate; 15-21 severe): 2 Source: Developed by Drs. Raheel Parish, Smitha Suazo, Eric Guy and colleagues, with an educational daryl from [employer]. ASHOK-7 Assessment Billing ASHOK-7 Assessment Tool: ASHOK-7 Assessment 99298 Physical exam (Primary Care) Vital Signs: Last Vital Signs Pulse 90 03/23/24 07:39 BP 110/70 03/23/24 07:39 Pulse Ox 96 03/23/24 07:39 BMI result Body Mass Index 39.4 Tobacco/Smoking Status: Tobacco use Status Tobacco use date assessed 03/23/24 03/23/24 07:42 Patient Tobacco Use Status Current someday Tobacco 03/23/24 07:42 Tobacco use type Cigar 03/23/24 07:42 e-Cigarette/Vaping Use Never Used 03/23/24 07:42 PHQ-9: PHQ-9 Score PHQ-9: Total score 3 03/23/24 07:42 Depression Screening Interpretation: Negative Thrive Assessment: Date of Thrive Assessment Date Thrive assessed 03/16/24 03/23/24 07:42 Currently or been in a relationship where the following occur: No concerns reported Coding Level of Care Code Est Pt Prev Care 40-64y(44624) Diagnoses Physical exam Z00.00 Right knee pain M25.561 Chronic pain of right knee M25.561; G89.29 Right knee injury S89.91XA Additional Codes PHQ-9 - 51804 - PHQ-9 Billing: Yes ([id number]) ASHOK-7 Assessment Billing - ASHOK-7 Assessment Tool: ASHOK-7 Assessment 19320 ([id number]) Assessment & Plan Assessment & Plan (1) Physical exam: Code(s): Z00.00 - Encounter for general adult medical examination without abnormal findings Category: Medical (2) Right knee pain: Code(s): M25.561 - Pain in right knee Category: Medical (3) Chronic pain of right knee: Code(s): M25.561 - Pain in right knee; G89.29 - Other chronic pain Category: Medical (4) Right knee injury: Code(s): S89.91XA - Unspecified injury of right lower leg, initial encounter Category: Medical Plan . Orders: Orders Complete Blood Count Auto Diff Today Z00.00 - Encounter for general adult medical examination without abnormal findings TSH reflex Free T4 Today Z00.00 - Encounter for general adult medical examination without abnormal findings UA CC w/rflx Micro + Cult Today Z00.00 - Encounter for general adult medical examination without abnormal findings MR knee RT wo con Today G89.29 - Other chronic pain, M25.561 - Pain in right knee, S89.91XA - Unspecified injury of right lower leg, initial encounter Comprehensive [place]. Panel Fast Today Z00.00 - Encounter for general adult medical examination without abnormal findings Lipid Panel Today Z00.00 - Encounter for general adult medical examination without abnormal findings
[2024-03-23 07:39] VITALS: BP 110/70; PULSE 90; O2SAT 96; BMI 39.4
== END 2024-03-23 08:38 | disposition home or self-care (01) ==
PROVIDERS: PCP Nurse Practitioner Family; Visit Provider Nurse Practitioner Family
DX: Z00.00 Encounter for general adult medical examination without abnormal findings (principal); M25.561 Pain in right knee; G89.29 Other chronic pain; S89.91XA Unspecified injury of right lower leg, initial encounter

== ENCOUNTER 2024-03-23 07:21 | Outpatient (REF) | payer BC, SELFPAY ==
[2024-03-23 09:58] LABS: MANUAL DIFF FLAG NO
[2024-03-23 10:00] LABS: Appearance Urine Clear; Color Urine Yellow; Glucose Urine UA Negative (Negative); Leukocyte Esterase Urine Negative (Negative); Nitrite Urine Negative (Negative); PH 6.5 (5.0-9.0); Urine Blood Negative (Negative); Urine Ketones Negative (Negative); Urine Protein Negative (Neg-Trace)
[2024-03-23 10:03] LABS: Basophils Percent Auto 0.5 % (0-2); Eosinophils Absolute Auto 0.2 X10*3/uL (0.0-0.4); Eosinophils Percent Auto 2.6 % (0-4); Hematocrit 44.1 % (42.0-52.0); Hemoglobin 14.9 g/dl (14.0-18.0); Imm Gran Abs Auto 0.03 X10*3/uL (0.00-0.03); Imm Gran Pct Auto 0.5 % (0.0-0.4); Lymphocytes Absolute Auto 1.6 X10*3/uL (1.2-4.9); Lymphocytes Percent Auto 28.5 % (20-40); Mean Corpuscular HGB Conc 33.8 g/dl (31.0-36.0); Mean Corpuscular Hemoglobin 29.8 pg (27.0-33.0); Mean Corpuscular Volume 88.2 fL (80.0-98.0); Mean Platelet Volume 10.2 fL (9.4-12.4); Monocytes Absolute Auto 0.6 X10*3/uL (0.1-1.2); Monocytes Percent Auto 10.3 % (2-11); Neutrophils Absolute Auto 3.3 x10*3/uL (2.0-8.3); Neutrophils Percent Auto 57.6 % (45-73); Platelet Count 263 X10*3/uL (160-400); Red Cell Distribution Width 13.2 % (11.0-16.0); White Blood Count 5.8 X10*3/uL (4.8-10.8)
[2024-03-23 10:43] LABS: Alanine Aminotransferase 33 U/L (0-40); Albumin Level 4.2 g/dL (3.5-5.0); Alkaline Phosphatase 70 U/L (39-117); Anion Gap 7 (12-20); Aspartate Amino Transferase 30 U/L (5-37); Bilirubin Total 0.3 mg/dL (0.0-1.0); Blood Urea Nitrogen 14 mg/dL (9-16); Carbon Dioxide 28 mmol/L (22-29); Chloride 109 mmol/L (96-108); Cholesterol 166 mg/dL (<200); Estimated Glomerular Filt Rate > 60; Glucose Fasting 91 mg/dL (60-99); HDL Cholesterol 37 mg/dL (>40); LDL Cholesterol Calculated 91 mg/dL (<100); Potassium 4.2 mmol/L (3.3-5.1); Sodium 140 mmol/L (135-145); Total Protein 6.9 g/dL (6.5-8.0); Triglycerides 193 mg/dL (<150)
[2024-03-23 10:44] LABS: TSH reflex Free T4 1.94 uIU/mL (0.32-4.0)
[2024-03-28 17:09] LABS: Testosterone, Free 81.2 pg/mL (35.0-155.0); Testosterone, Total 376 ng/dL (250-1100)
== END 2024-03-23 07:22 | disposition home or self-care (01) ==
LOC: HO.HMGCLDS 07:21
PROVIDERS: Nurse Practitioner Family; PCP Nurse Practitioner Family; Visit Provider Nurse Practitioner Family
DX: Z00.00 Encounter for general adult medical examination without abnormal findings (principal); G89.29 Other chronic pain; M25.561 Pain in right knee; S89.91XA Unspecified injury of right lower leg, initial encounter; E66.9 Obesity, unspecified; Z68.39 Body mass index [BMI] 39.0-39.9, adult; N52.9 Male erectile dysfunction, unspecified; W19.XXXA Unspecified fall, initial encounter; Y93.9 Activity, unspecified; Y92.9 Unspecified place or not applicable; Y99.9 Unspecified external cause status
CPT/HCPCS: 36415; 80053; 80061; 81003; 84402; 84403; 84443; 85025; 96127

== ENCOUNTER 2024-04-07 11:05 | Outpatient (AMB) | payer BC, SELFPAY ==
--- NOTE | 2024-04-07 11:06 | MHC.OFFVIS ---
Intake Visit Reasons: 6m/Testo(set) Intake Note: Patient is Present for Follow Up Testosterone Results Urology Medication: Tadalafil Antibiotic Allergies: None Blood Thinners: None Creative Services Manager Required: No Accompanied by: Self / Same As Patient Allergies No Known Allergies Allergy (Verified 04/07/24 19:46) Medication List - Last Reconciled 04/07/24 by MIKHAIL GarciaP- tadalafil (Cialis) 10 mg (2 x 5 mg) PO DAILY 90 days tirzepatide (weight loss) (Zepbound) 2.5 mg (0.5 mL) subcut QWEEK HPI Comments Details: Michael is a pleasant 38 year old male patient of Dr. Mar. Has a past medical history of sleep apnea. He presents to the office today for a follow up of his erectile dysfunction. In discussion with the patient today he reports to be doing and feeling well. He reports noting significant improvement in maintaining erections with 5 mg of Cialis daily. Recent labs reviewed with the patient today as noted and trended below. He reports since his last office visit here approximately 6 months ago has started Trizepatide for weight loss and has lost intentionally approximately 10 lb. He otherwise offers no issues or concerns at this time. He denies urinary urgency, urinary frequency, incontinence, nocturia, hematuria, dysuria, foul smelling urine, changes to urinary stream, flank pain, fever, and or chills. He continues to work with compliance of CPAP machine. He denies any issues with his urination. In office urinalysis results reviewed with the patient today. Discussed at length the importance of diet control as well as regular exercise to further assist with weight management. Discussed the affects of being overweight and potential cause of ED by damaging blood vessels, decreasing testosterone, and causing general inflammation throughout the body. Discussed overweight can cause damage to blood vessels due to associated hypertension, diabetes, and hypercholesteremia as well as many other issues. Previous labs are as follows: FSH: 03/01 1.3 LH: 03/01 2.0 Total Testosterone: 08/30 300, 03/01 409, 07/31 451, 04/03 376 Free Testosterone-: 08/30 57.0, 03/01 70.8, 07/31 74.0, 04/03 81.2 Estradiol: 08/30 24 He does discuss potentially wanting a vasectomy in the near future. He otherwise offers no other issues or concerns at this time. [facility] Medical History Obesity (BMI 30-39.9) Surgical History History of repair of vocal cord Social History Housing: House Alcohol intake: current Patient Tobacco Use Status: Current someday Tobacco user Tobacco use type: Cigar Cigarette Packs Per Day: 1 e-Cigarette/Vaping Use: Never Used Second Hand Smoke Exposure: No service: Yes Current occupational status: employed Current occupation: [employer] Current occupational exposures/hazards: No Cognitive needs: No Hearing needs: No Vision needs: Yes Review of Systems Const All systems reviewed & are unremarkable except as noted in HPI and below Reports as per HPI Eyes Reports no additional complaints ENT Reports no additional complaints Card Reports no additional complaints Resp Reports no additional complaints GI Reports no additional complaints Reports as per HPI Musc Reports no additional complaints Neuro Reports no additional complaints Psych Reports no additional complaints Endo Reports no additional complaints Jaren/Lymph Reports no additional complaints Aller/Immun Reports no additional complaints Physical Exam Const General: cooperative, healthy appearing, comfortable, no acute distress, well developed, alert and awake Nutritional Appearance: overweight Orientation/consciousness: patient oriented x3 Limitations: no limitations HEENT Head: Yes normal to inspection, Yes normocephalic and Yes atraumatic Ears: hearing grossly normal bilaterally Eyes General: appearance normal, both eyes and all related structures Neck Neck: Yes normal visual inspection and Yes trachea midline Chest Chest palpation & inspection: normal inspection of the chest Resp Effort & Inspection: normal respiratory effort and able to speak in complete sentences Cardio Rate: regular rate GI Inspection: Yes normal to inspection General: Yes no CVA tenderness Back/Spine/Pelvis Back: no CVA tenderness Skin General skin exam: no rashes or lesions noted Neuro General: patient oriented x3 Extrem General: Yes normal to inspection Psych Appearance: grossly normal and well kempt Mental Status: mental status grossly normal Speech and movement: Normal speech and movement present and Clear speech present Affect: normal affect Attitude: cooperative Thought process: Normal thought process present Thought content: Normal thought content present Insight: Fair insight present (Psych) Judgement: Fair judgement present (Psych) Results AMB Urinalysis, Automated UA Leukoctes 0 Marla/uL Last Edit by Stephanie Roper [facility] on 04/07/24 11:28 UA Nitrite Negative Last Edit by Stephanie Roper, A on 04/07/24 11:28 UA Urobilinogen 0.2 mg/dL Last Edit by Stephanie Roper A on 04/07/24 11:28 UA Protein 0 mg/dL Last Edit by Stephanie Roper A on 04/07/24 11:28 UA pH 6.0 Last Edit by Stephanie Roper, A on 04/07/24 11:28 UA Blood 0 Esteban/uL Last Edit by Stephanie Roper A on 04/07/24 11:28 UA Specific [place] 1.010 Last Edit by Stephanie Roper A on 04/07/24 11:28 UA Ketone Negative Last Edit by Stephanie Roper [facility] on 04/07/24 11:28 UA Bilirubin 0 mg/dL Last Edit by Stephanie Roper A on 04/07/24 11:28 UA Glucose 0 mg/dL Last Edit by Stephanie Roper A on 04/07/24 11:28 Results Reviewed Results Reviewed: Laboratory Last Values Urine pH (Auto) 6.0 04/07/24 11:07 Specific [place] (Auto) 1.010 04/07/24 11:07 Urine Protein (Auto) 0 mg/dL 04/07/24 11:07 Glucose (UA)(Auto) 0 mg/dL 04/07/24 11:07 Urine Ketones (Auto) Negative 04/07/24 11:07 Urine Blood (Auto) 0 Esteban/uL 04/07/24 11:07 Urine Nitrite (Auto) Negative 04/07/24 11:07 Urine Bilirubin (Auto) 0 mg/dL 04/07/24 11:07 Urine Urobilinogen (Auto) 0.2 mg/dL 04/07/24 11:07 Leukocyte Esterase (Auto) 0 Marla/uL 04/07/24 11:07 Assessment & Plan Assessment & Plan (1) Erectile dysfunction: Code(s): N52.9 - Male erectile dysfunction, unspecified Category: Medical Plan In office urinalysis results reviewed with the patient today; as noted above. Patient reports significant improvement and erectile dysfunction symptoms on low-dose Cialis Continue with lifestyle modifications of adequate sleep, weight management, exercise, and compliance with CPAP machine Continue Cialis 5 mg daily; refill provided Will obtain testosterone, free testosterone, and LH in 3 months. He currently denies any bothersome urinary issues or concerns. He reports be happy with current voiding parameters. Follow-up in 3 months with labs to be completed prior; if not sooner with any issues, concerns, and or questions. Orders: Orders Testosterone, Free/Total 3 Months N52.9 - Male erectile dysfunction, unspecified AMB Urinalysis Automated Today Z13.9 - Encounter for screening, unspecified Lutenizing Hormone 3 Months N52.9 - Male erectile dysfunction, unspecified Medications: Changed From tadalafil (Cialis) [facility] DR33 [id number] 5 mg PO DAILY 90 days 90 tabs 4RF To tadalafil (Cialis) [facility] DR33 [id number] 10 mg (2 x 5 mg) PO DAILY 90 days 180 tabs 3RF Patient Instructions: The patient had an opportunity to ask questions regarding the treatment plan. All questions were answered. Physical exam, labs, and imaging were discussed and reviewed in detail. As well as risks, benefits, and discussion of treatment choices. No major barriers to understanding were identified. The patient expressed understanding and agreement with the above treatment plan. The patient was made aware they should contact our office by phone for worsening of their current condition, the appearance of new symptoms, or with any questions or concerns. Compliance is encouraged with any medications and follow up testing that is ordered. It is a privilege to be allowed the opportunity to participate in? your urological care.? Again, if you have any questions or concerns If you have any questions or concerns please do not hesitate to contact me. The office is [phone]. This note is constructed using voice recognition software. While every effort has been made to ensure accuracy guest laundry attendant errors may have been included. Yours sincerely, KAMRYN Garcia Coding Level of Care Code Est Pt Level 3 (63237) Diagnoses Erectile dysfunction N52.9
== END 2024-04-07 11:39 | disposition home or self-care (01) ==
PROVIDERS: PCP Nurse Practitioner Family; Visit Provider Nurse Practitioner Family
DX: Z13.9 Encounter for screening, unspecified (principal); N52.9 Male erectile dysfunction, unspecified
CPT/HCPCS: 99213

== ENCOUNTER → 2024-04-07 11:05 | Outpatient (BNVA) | payer BC, SELFPAY | PROVIDERS: PCP Nurse Practitioner Family; Visit Provider Nurse Practitioner Family | DX: N52.9 Male erectile dysfunction, unspecified (principal); Z79.899 Other long term (current) drug therapy | CPT/HCPCS: 81003 ==

== ENCOUNTER 2024-05-10 09:23 | Outpatient (AMB) | payer BC, SELFPAY ==
[2024-05-10 09:25] VITALS: BP 100/80; PULSE 70; O2SAT 99; BMI 38.0
--- NOTE | 2024-05-10 09:25 | A.OFFVIS_ITS ---
Vital Signs 05/10/24 09:25 Height 6 ft 3 in Weight 304 lb BMI 38.0 BP 100/80 Blood Pressure Location Rt brachial Position Sitting Pulse 70 Pulse Source Pulse Oximeter Pulse Oximetry (%) 99 Oxygen Delivery Method Room Air Intake Visit Reasons: 1 year f/u Intake Note: Patient presents follow up ALEXA. Compliance in chart Home Demonstrator Required: No Accompanied by: Self / Same As Patient Allergies No Known Allergies Allergy (Verified 05/10/24 09:27) Medication List - Last Reconciled 05/10/24 by REBECCA Palacios tadalafil (Cialis) 10 mg (2 x 5 mg) PO DAILY 90 days tirzepatide (weight loss) (Zepbound) 2.5 mg (0.5 mL) subcut QWEEK HPI Comments Details: Chief Complaint Follow-up evaluation of sleep apnea management History of Present Illness The patient is a 38-year-old male presenting for follow-up on his management of obstructive sleep apnea. He is being treated with continuous positive airway pressure (CPAP), although compliance is variable due to occasionally forgetting to apply the device. Symptomatic control is achieved when CPAP is consistently used. Weight management through Zepound started two months ago, resulting in a 10-pound initial weight loss, but the patient reports a plateau and experiences chills every third dose. Sleep- - Typical bedtime: 9:30 to 10:00 PM - Sleep onset: Variable- sometimes falls asleep right away, other times they may take an hour to fall asleep. - Wake time: 6:15 AM; 4:30 AM once a week to accommodate driving into work - Weekday routines: Bedtime TV with sleep timer - Environment: TV in bed; CPAP machine use - Arousals: Variable, sometimes disturbed by CPAP discomfort - Caffeine intake: Multiple cups of coffee per day, mindful to avoid later in the day Employment- Current Employment: Sets own schedule, works both remotely and with weekly commutes. - Commute: Drives to [facility] once a week, requiring a 4:30 AM wake-up. - Shift flexibility: Adjusts work hours to avoid heavy traffic.\ Review of PAP therapy- Does patient have sufficient PAP supplies? Yes Does patient clean PAP supplies on a regular basis? Yes Does the patient use distilled water in their PAP machine water reservoir? Yes PAP compliance report reviewed. Compliance report date range: February 03, 2024, through May 02, 2024 Overall usage: 42 percent Usage greater than 4 hours: 24 percent PAP setting: APAP 5 to 15 cmH2O with EPR 2, with maximum pressure 9.8 cm H2O Average usage on days used: 4 hours and 9 minutes Average mask leakage: 0.5 LPM Residual AHI: 0.2 per hour [facility] Medical History (Updated 05/10/24 @ 10:30 by REBECCA Palacios) Obesity (BMI 30-39.9) Surgical History History of repair of vocal cord Social History Housing: House Alcohol intake: current Patient Tobacco Use Status: Current someday Tobacco user Tobacco use type: Cigar Cigarette Packs Per Day: 1 e-Cigarette/Vaping Use: Never Used Second Hand Smoke Exposure: No service: Yes Current occupational status: employed Current occupation: [employer] Current occupational exposures/hazards: No Cognitive needs: No Hearing needs: No Vision needs: Yes Physical Exam Vital Signs: Last Vital Signs Pulse 70 05/10/24 09:25 BP 100/80 05/10/24 09:25 Pulse Ox 99 05/10/24 09:25 Oxygen Delivery Method Room Air 05/10/24 09:25 BMI result Body Mass Index 38.0 Const General: no acute distress Orientation/consciousness: patient oriented x3 Resp Effort & Inspection: normal respiratory effort and able to speak in complete sentences Neuro General: patient oriented x3 Psych Mental Status: mental status grossly normal Speech and movement: Clear speech present Attitude: cooperative Assessment & Plan Assessment & Plan (1) ALEXA (obstructive sleep apnea): Comment: Mild degree of sleep apnea. The AHI was 5/hr and oxygen hernán was 85%. Code(s): G47.33 - Obstructive sleep apnea (adult) (pediatric) Category: Medical (2) Obesity (BMI 30-39.9): Code(s): E66.9 - Obesity, unspecified Category: Medical Plan Discussion Notes During the visit, we discussed the management of his obstructive sleep apnea and the importance of consistent CPAP use. The patient was advised to maintain CPAP usage for at least 4 hours per night for optimal results. We reviewed the impact of sleep hygiene and lifestyle changes, such as regular exercise and proper nutrition, on overall health and sleep quality. I recommended considering adjustments to his sleep schedule to improve consistency and alleviate his sleep disturbances. We also explored the possible benefits and side effects of Zepound therapy, noting the need to monitor for any adverse reactions. The patient was reminded to perform regular maintenance of CPAP equipment. The potential future re-evaluation of sleep apnea with weight loss was discussed, with an emphasis on the possible requirement for repeat sleep studies based on insurance policies. Educational resources, including a podcast on sleep optimization, were suggested to further enhance his understanding and management of his condition. Patient did inquire about inspire therapy, however was advised that his sleep apnea is mild and therefore he would not be considered a candidate for inspire therapy. Plan Continued use of APAP 5-15 cm H2O with EPR 2 is advised, as patient is exp eriencing good clinical effect from use. Target usage is above 4 hours nightly to maintain symptom resolution. Regular CPAP supply maintenance including use of distilled water is reiterated. Sleep hygiene education resources, such as relevant podcasts, are provided. For obesity, continuation of Zepound is recommended along with monitoring for side effects. If snoring continues despite optimal weight loss, consider referral to ENT for further assessment. Engagement in regular exercise utilizing home equipment is encouraged, with quieter activities preferable. Establishing a consistent wake schedule estefani to commuting days is advised to improve sleep patterns. Follow-up is scheduled in six months to assess progress in weight management and obstructive sleep apnea control. Patient was informed and verbally consented to the use of an ambient scribe for clinic note documentation during this visit. Coding Level of Care Code Est Pt Level 4 (56123) Diagnoses ALEXA (obstructive sleep apnea) G47.33 Obesity (BMI 30-39.9) E66.9
== END 2024-05-10 10:24 | disposition home or self-care (01) ==
PROVIDERS: PCP Nurse Practitioner Family; Visit Provider Nurse Practitioner Family
DX: G47.33 Obstructive sleep apnea (adult) (pediatric) (principal); E66.9 Obesity, unspecified
CPT/HCPCS: 99214

== ENCOUNTER 2024-06-26 09:05 | Outpatient (REF) | payer BC, SELFPAY ==
[2024-06-27 10:09] LABS: Lutenizing Hormone 2.4 mIU/mL (1.5-9.3)
[2024-07-07 15:18] LABS: Testosterone, Free 69.8 pg/mL (35.0-155.0); Testosterone, Total 348 ng/dL (250-1100)
== END 2024-06-26 09:06 | disposition home or self-care (01) ==
LOC: HO.HMGCLDS 09:05
PROVIDERS: PCP Nurse Practitioner Family; Visit Provider Nurse Practitioner Family
DX: N52.9 Male erectile dysfunction, unspecified (principal)
CPT/HCPCS: 36415; 83002; 84402; 84403

== ENCOUNTER 2024-07-08 08:42 | Outpatient (AMB) | payer BC, SELFPAY ==
--- NOTE | 2024-07-08 08:45 | A.OFFVIS_ITS ---
Intake Visit Reasons: 3m/labs Intake Note: Patient presents today for follow up on:lab results Testosterone:348; Free Testosterone: 69.8 LH: 2.4 Urology Medication: Tadalafil Antibiotic Allergies: None Blood Thinners: None Open Die Inspector Required: No Accompanied by: Self / Same As Patient Allergies No Known Allergies Allergy (Verified 07/08/24 09:10) Medication List - Last Reconciled 07/08/24 by KAMRYN Garcia tadalafil (Cialis) 10 mg (2 x 5 mg) PO DAILY 90 days tirzepatide (weight loss) 7.5 mg (0.5 mL) subcut QWEEK HPI Comments Details: Michael is a pleasant 38 year old male patient of Dr. Mar. Has a past medical history of sleep apnea. He presents to the office today for a follow up of his erectile dysfunction. In discussion with the patient today he reports to be doing and feeling well. He reports noting significant improvement in maintaining erections with 5 mg of Cialis daily. Recent labs reviewed with the patient today as noted and trended below. He discusses his intentional weight loss over the last 5 months with tirzepatide. He reports having lost approximately 30 lb. He otherwise offers no issues or concerns at this time. He denies urinary urgency, urinary frequency, incontinence, nocturia, hematuria, dysuria, foul smelling urine, changes to urinary stream, flank pain, fever, and or chills. He continues to work with compliance of CPAP machine. He denies any issues with his urination. In office urinalysis results reviewed with the patient today. Discussed at length the importance of diet control as well as regular exercise to further assist with weight management. Discussed the affects of being overweight and potential cause of ED by damaging blood vessels, decreasing testosterone, and causing general inflammation throughout the body. Discussed overweight can cause damage to blood vessels due to associated hyp ertension, diabetes, and hypercholesteremia as well as many other issues. Labs are as follows: FSH: 12/23 1.3 LH: 03/01 2.0, 07/02 2.4 Total Testosterone: 08/30 300, 03/01 409, 07/31 451, 04/03 376, 07/02 348 Free Testosterone-: 08/30 57.0, 03/01 70.8, 07/31 74.0, 04/03 81.2, 07/02 69.8 Estradiol: 08/31 23 He does discuss potentially wanting a vasectomy in the near future. We discussed slight decrease in testosterone. We discussed further treatment options and risks and benefits of these treatment options. He is still potentially trying to have another baby. He otherwise offers no other issues or concerns at this time. [facility] Medical History Obesity (BMI 30-39.9) Surgical History History of repair of vocal cord Social History Housing: House Alcohol intake: current Patient Tobacco Use Status: Current someday Tobacco user Tobacco use type: Cigar Cigarette Packs Per Day: 1 e-Cigarette/Vaping Use: Never Used Second Hand Smoke Exposure: No service: Yes Current occupational status: employed Current occupation: [employer] Current occupational exposures/hazards: No Cognitive needs: No Hearing needs: No Vision needs: Yes Review of Systems Const All systems reviewed & are unremarkable except as noted in HPI and below Reports as per HPI Eyes Reports no additional complaints ENT Reports no additional complaints Card Reports no additional complaints Resp Reports no additional complaints GI Reports no additional complaints Reports as per HPI Musc Reports no additional complaints Neuro Reports no additional complaints Psych Reports no additional complaints Endo Reports no additional complaints Jaren/Lymph Reports no additional complaints Aller/Immun Reports no additional complaints Physical Exam Const General: cooperative, healthy appearing, comfortable, no acute distress, well developed, alert and awake Nutritional Appearance: overweight Orientation/consciousness: patient oriented x3 Limitations: no limitations HEENT Head: Yes normal to inspection, Yes normocephalic and Yes atraumatic Ears: hearing grossly normal bilaterally Eyes General: appearance normal, both eyes and all related structures Neck Neck: Yes normal visual inspection and Yes trachea midline Chest Chest palpation & inspection: normal inspection of the chest Resp Effort & Inspection: normal respiratory effort and able to speak in complete sentences Cardio Rate: regular rate GI Inspection: Yes normal to inspection General: Yes no CVA tenderness Back/Spine/Pelvis Back: no CVA tenderness Skin General skin exam: no rashes or lesions noted Neuro General: patient oriented x3 Extrem General: Yes normal to inspection Psych Appearance: grossly normal and well kempt Mental Status: mental status grossly normal Speech and movement: Normal speech and movement present and Clear speech present Affect: normal affect Attitude: cooperative Thought process: Normal thought process present Thought content: Normal thought content present Insight: Fair insight present (Psych) Judgement: Fair judgement present (Psych) Results AMB Urinalysis, Automated UA Leukoctes 0 Marla/uL Last Edit by Eugenio Easton on 07/08/24 08:57 UA Nitrite Last Edit by Eugenio Easton on 07/08/24 08:57 UA Urobilinogen 0.2 mg/dL Last Edit by AndrewMy eShoekatie Easton on 07/08/24 08:57 UA Protein 0 mg/dL Last Edit by Eugenio Easton on 07/08/24 08:57 UA pH 6.5 Last Edit by Eugenio Easton on 07/08/24 08:57 UA Blood 0 Esteban/uL Last Edit by [email or web address] Sarahyennifer on 07/08/24 08:57 UA Specific [place] 1.015 Last Edit by AndrewMy eShoekatie Simthyennifer on 07/08/24 08:57 UA Ketone Last Edit by AndrewMy eShoekatie Smithyennifer on 07/08/24 08:57 UA Bilirubin 0 mg/dL Last Edit by AndrewMy eShoekatie Smithyennifer on 07/08/24 08:57 UA Glucose 0 mg/dL Last Edit by Wentworth Technologykatie Smithyennifer on 07/08/24 08:57 Results Reviewed Results Reviewed: Laboratory Last Values Urine pH (Auto) 6.5 07/08/24 08:51 Specific [place] (Auto) 1.015 07/08/24 08:51 Urine Protein (Auto) 0 mg/dL 07/08/24 08:51 Glucose (UA)(Auto) 0 mg/dL 07/08/24 08:51 Urine Blood (Auto) 0 Esteban/uL 07/08/24 08:51 Urine Bilirubin (Auto) 0 mg/dL 07/08/24 08:51 Urine Urobilinogen (Auto) 0.2 mg/dL 07/08/24 08:51 Leukocyte Esterase (Auto) 0 Marla/uL 07/08/24 08:51 Assessment & Plan Assessment & Plan (1) Erectile dysfunction: Code(s): N52.9 - Male erectile dysfunction, unspecified Category: Medical Plan In office urinalysis results reviewed with the patient today; as noted above. Recent testosterone, free testosterone, and LH results reviewed with the patient today; as noted above Patient reports significant improvement and erectile dysfunction symptoms on low-dose Cialis Continue with lifestyle modifications of adequate sleep, weight management, exercise, and compliance with CPAP machine Continue Cialis as prescribed; refill provided Will obtain testosterone, free testosterone, and LH in 3 months. He currently denies any bothersome urinary issues or concerns. He reports be happy with current voiding parameters. Follow-up in 3 months with labs to be completed prior; if not sooner with any issues, concerns, and or questions. Orders: Orders AMB Urinalysis Automated 07/08/24 Z13.9 - Encounter for screening, unspecified Medications: Refilled tadalafil (Cialis) [facility] DR33 [id number] 10 mg (2 x 5 mg) PO DAILY 180 tabs 3RF 90 days Patient Instructions: The patient had an opportunity to ask questions regarding the treatment plan. All questions were answered. Physical exam, labs, and imaging were discussed and reviewed in detail. As well as risks, benefits, and discussion of treatment choices. No major barriers to understanding were identified. The patient expressed understanding and agreement with the above treatment plan. The patient was made aware they should contact our office by phone for worsening of their current condition, the appearance of new symptoms, or with any questions or concerns. Compliance is encouraged with any medications and follow up testing that is ordered. It is a privilege to be allowed the opportunity to participate in? your urological care.? Again, if you have any questions or concerns If you have any questions or concerns please do not hesitate to contact me. The office is [phone]. This note is constructed using voice recognition software. While every effort has been made to ensure accuracy medicare sales representative errors may have been included. Yours sincerely, KAMRYN Garcia Coding Level of Care Code Est Pt Level 3 (66459) Diagnoses Erectile dysfunction N52.9
== END 2024-07-08 09:43 | disposition home or self-care (01) ==
LOC: HO.HUSH 08:43
PROVIDERS: PCP Nurse Practitioner Family; Visit Provider Nurse Practitioner Family
DX: Z13.9 Encounter for screening, unspecified (principal)

== ENCOUNTER → 2024-07-08 08:42 | Outpatient (BNVA) | payer BC, SELFPAY | PROVIDERS: PCP Nurse Practitioner Family; Visit Provider Nurse Practitioner Family | DX: N52.9 Male erectile dysfunction, unspecified (principal) | CPT/HCPCS: 81003 ==

== ENCOUNTER → 2024-07-19 10:54 | Outpatient (BNVA) | payer BC, SELFPAY | PROVIDERS: PCP Nurse Practitioner Family; Visit Provider Nurse Practitioner Family ==

== ENCOUNTER 2024-10-06 06:24 | Outpatient (REF) | payer BC, SELFPAY | END 2024-10-06 06:25 | disposition home or self-care (01) | LOC: HO.HMGCLDS 06:24 | PROVIDERS: PCP Nurse Practitioner Family; Visit Provider Nurse Practitioner Family | DX: N52.9 Male erectile dysfunction, unspecified (principal) | CPT/HCPCS: 36415; 83002 ==

== ENCOUNTER 2024-10-20 08:27 | Outpatient (REF) | payer BC, SELFPAY ==
[2024-10-26 13:13] LABS: Testosterone, Free 67.9 pg/mL (35.0-155.0)
== END 2024-10-20 08:28 | disposition home or self-care (01) ==
LOC: HO.HMGCLDS 08:27
PROVIDERS: PCP Nurse Practitioner Family; Visit Provider Nurse Practitioner Family
DX: Z13.89 Encounter for screening for other disorder (principal)
CPT/HCPCS: 36415; 84402; 84403

== ENCOUNTER 2024-11-10 15:54 | Outpatient (AMB) | payer BC, SELFPAY ==
--- NOTE | 2024-11-10 15:57 | A.OFFVIS_ITS ---
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 Mar. Has a past medical history of sleep apnea. He presents to the office today for a follow up of his erectile dysfunction. In discussion with the patient today he reports to be doing and feeling well. He reports noting significant improvement in maintaining erections Cialis as prescribed. Recent labs reviewed with the pat ient today as noted and trended below. He discusses his intentional weight loss over the last 9 months with tirzepatide. He reports having lost approximately 60 lb. He otherwise offers no issues or concerns at this time. He denies urinary urgency, urinary frequency, incontinence, nocturia, hematuria, dysuria, foul smelling urine, changes to urinary stream, flank pain, fever, and or chills. He continues to work with compliance of CPAP machine. He denies any issues with his urination. In office urinalysis results reviewed with the patient today. Discussed at length the importance of diet control as well as regular exercise to further assist with weight management. Discussed the affects of being overweight and potential cause of ED by damaging blood vessels, decreasing testosterone, and causing general inflammation throughout the body. Discussed overweight can cause damage to blood vessels due to associated hypertension, diabetes, and hypercholesteremia as well as many other issues. Labs are as follows: FSH: 03/01 1.3 LH: 03/01 2.0, 07/02 2.4, 10/01 2.2 Total Testosterone: 08/30 300, 03/01 409, 07/31 451, 04/03 376, 07/02 348, 11/01 535 Free Testosterone-: 08/30 57.0, 03/01 70.8, 07/31 74.0, 04/03 81.2, 07/02 69.8, 11/01 67.9 Estradiol: 08/31 23 He does discuss potentially wanting a vasectomy in the near future. We discussed increase in testosterone. We discussed further treatment options and risks and benefits of these treatment options. He would like to continue with current management. He discusses his upcoming trips for work. He otherwise offers no other issues or concerns at this time. [facility] Medical History Obesity (BMI 30-39.9) Surgical History History of repair of vocal cord Social History Housing: House Alcohol intake: current Patient Tobacco Use Status: Current someday Tobacco user Tobacco use type: Cigar Cigarette Packs Per Day: 1 e-Cigarette/Vaping Use: Never Used Second Hand Smoke Exposure: No service: Yes Current occupational status: employed Current occupation: [employer] Current occupational exposures/hazards: No Cognitive needs: No Hearing needs: No Vision needs: Yes Review of Systems Const All systems reviewed & are unremarkable except as noted in HPI and below Physical Exam Const General: cooperative, healthy appearing, comfortable, no acute distress, well developed, alert and awake Nutritional Appearance: overweight Orientation/consciousness: patient oriented x3 Limitations: no limitations HEENT Head: Yes normal to inspection, Yes normocephalic and Yes atraumatic Ears: hearing grossly normal bilaterally Eyes General: appearance normal, both eyes and all related structures Neck Neck: Yes normal visual inspection and Yes trachea midline Chest Chest palpation & inspection: normal inspection of the chest Resp Effort & Inspection: normal respiratory effort and able to speak in complete sentences Cardio Rate: regular rate GI Inspection: Yes normal to inspection General: Yes no CVA tenderness Back/Spine/Pelvis Back: no CVA tenderness Skin General skin exam: no rashes or lesions noted Neuro General: patient oriented x3 Extrem General: Yes normal to inspection Psych Appearance: grossly normal and well kempt Mental Status: mental status grossly normal Speech and movement: Normal speech and movement present and Clear speech present Affect: normal affect Attitude: cooperative Thought process: Normal thought process present Thought content: Normal thought content present Insight: Fair insight present (Psych) Judgement: Fair judgement present (Psych) Results AMB Urinalysis, Automated UA Leukoctes 0 Marla/uL Last Edit by ARTURO Cesar on 11/10/24 16:10 UA Nitrite Negative Last Edit by Kelly Lopez [facility] on 11/10/24 16:10 UA Urobilinogen 3.5 mg/dL Last Edit by Kelly Lopez [facility] on 11/10/24 16:1 0 UA Protein 0 mg/dL Last Edit by Kelly Lopez [facility] on 11/10/24 16:10 UA pH 6.0 Last Edit by Kelly Lopez [facility] on 11/10/24 16:10 UA Blood 0 Esteban/uL Last Edit by Kelly Lopez [facility] on 11/10/24 16:10 UA Specific [place] 1.020 Last Edit by Kelly Lopez [facility] on 11/10/24 16: 10 UA Ketone Negative Last Edit by Kelly Lopez [facility] on 11/10/24 16:10 UA Bilirubin 0 mg/dL Last Edit by Kelly Lopez [facility] on 11/10/24 16:10 UA Glucose 0 mg/dL Last Edit by Kelly Lopez [facility] on 11/10/24 16:10 Results Reviewed Results Reviewed: Laboratory Last Values Urine pH (Auto) 6.0 11/10/24 16:10 Specific [place] (Auto) 1.020 11/10/24 16:10 Urine Protein (Auto) 0 mg/dL 11/10/24 16:10 Glucose (UA)(Auto) 0 mg/dL 11/10/24 16:10 Urine Ketones (Auto) Negative 11/10/24 16:10 Urine Blood (Auto) 0 Esteban/uL 11/10/24 16:10 Urine Nitrite (Auto) Negative 11/10/24 16:10 Urine Bilirubin (Auto) 0 mg/dL 11/10/24 16:10 Urine Urobilinogen (Auto) 3.5 mg/dL 11/10/24 16:10 Leukocyte Esterase (Auto) 0 Marla/uL 11/10/24 16:10 Assessment & Plan Assessment & Plan (1) Erectile dysfunction: Code(s): N52.9 - Male erectile dysfunction, unspecified Category: Medical Plan In office urinalysis results reviewed with the patient today; as noted above. Recent testosterone, free testosterone, and LH results reviewed with the patient today; as noted above Patient reports significant improvement and erectile dysfunction symptoms on current management of Cialis. Continue with lifestyle modifications of adequate sleep, weight management, exercise, and compliance with CPAP machine Continue Cialis as prescribed. Will obtain testosterone free and total in 6 months He currently denies any bothersome urinary issues or concerns. He reports be happy with current voiding parameters. Follow-up in 6 months with labs to be completed prior; if not sooner with any issues, concerns, and or questions. Orders: Orders AMB Urinalysis Automated Today Z13.9 - Encounter for screening, unspecified Patient Instructions: The patient had an opportunity to ask questions regarding the treatment plan. All questions were answered. Physical exam, labs, and imaging were discussed and reviewed in detail. As well as risks, benefits, and discussion of treatment choices. No major barriers to understanding were identified. The patient expressed understanding and agreement with the above treatment plan. The patient was made aware they should contact our office by phone for worsening of their current condition, the appearance of new symptoms, or with any questions or concerns. Compliance is encouraged with any medications and follow up testing that is ordered. It is a privilege to be allowed the opportunity to participate in? your urological care.? Again, if you have any questions or concerns If you have any questions or concerns please do not hesitate to contact me. The office is [phone]. This note is constructed using voice recognition software. While every effort has been made to ensure accuracy soft sugar cutter errors may have been included. Yours sincerely, KAMRYN Garcia Coding Level of Care Code Est Pt Level 3 (95523) Diagnoses Erectile dysfunction N52.9
== END 2024-11-10 16:30 | disposition home or self-care (01) ==
LOC: HO.HUSH 15:55
PROVIDERS: PCP Nurse Practitioner Family; Visit Provider Nurse Practitioner Family
DX: N52.9 Male erectile dysfunction, unspecified (principal); Z13.9 Encounter for screening, unspecified
CPT/HCPCS: 99213

== ENCOUNTER → 2024-11-10 15:54 | Outpatient (BNVA) | payer BC, SELFPAY | PROVIDERS: PCP Nurse Practitioner Family; Visit Provider Nurse Practitioner Family | DX: N52.9 Male erectile dysfunction, unspecified (principal) | CPT/HCPCS: 81003 ==

== ENCOUNTER 2024-12-30 15:52 | Outpatient (AMB) | payer BC, SELFPAY ==
[2024-12-30 15:54] VITALS: BP 110/70; PULSE 74; TEMP 36.7; O2SAT 100; BMI 32.5
--- NOTE | 2024-12-30 15:54 | MHC.OFFWIV ---
Intake Vital Signs 12/30/24 15:54 Height 6 ft 3 in Weight 260 lb BMI 32.5 BP 110/70 Blood Pressure Location Lt brachial Position Sitting Pulse 74 Pulse Source Pulse Oximeter Temp 98.1 F Temp Source Oral Pulse Oximetry (%) 100 Oxygen Delivery Method Room Air Intake Visit Reasons: EP Pain in right ear Intake Note: The EP complains of issue with his right ear (mild pain, mild hearing problem and yellowish earwax) since early this week. Patient Tobacco Use Status: Current someday Tobacco user Allergies No Known Allergies Allergy (Verified 12/30/24 16:03) Do you need a note to return to daycare/school/sports/work: No HPI HPI Comments History of Present Illness Details History - The patient is a 39-year-old male who presents today with pain in the right ear. - He states that he started with pain in the right ear and had pressure and feels boggy. - He has no drainage or blood coming from the ear. - He has no loss of hearing. - He cleaned his ear with a q-tip and had some discharge on the tip. - He had an ear infection last year and it feels very similar to that pain. - He denies sick contacts, recent travel, [place], sinus congestion, sore throat, cough, dizziness, CP, SOB, abd pain, n/v/d. - He is not a smoker. Physical Exam General: Cooperative, healthy appearing, comfortable, no acute distress and well developed Head: Normal to inspection Ears: External ears normal bilaterally. No tragus or mastoid tenderness noted. Discharge, erythema and swelling noted in the rigth canal. TM's visualized. Face and sinus: Normal facial exam. No TTP of the sinuses. Neck: Normal visual inspection. Full ROM. No lymphadenopathy noted. Respiratory: Normal respiratory effort and able to speak in complete sentences. Clear to auscultation bilaterally. No w/r/r noted. Cardiac: RRR, no m/r/g noted. Normal S1 and S2 noted. Skin: No rashes or lesions noted Neuro: Patient oriented x3 [facility] Medical History Obesity (BMI 30-39.9) Surgical History History of repair of vocal cord Social History Housing: House Alcohol intake: current Patient Tobacco Use Status: Current someday Tobacco user Tobacco use type: Cigar Cigarette Packs Per Day: 1 e-Cigarette/Vaping Use: Never Used Second Hand Smoke Exposure: No service: Yes Current occupational status: employed Current occupation: [employer] Current occupational exposures/hazards: No Cognitive needs: No Hearing needs: No Vision needs: Yes Review of Systems Const All systems reviewed & are unremarkable except as noted in HPI and below Physical Exam Vital Signs: Last Vital Signs Temp 98.1 F 12/30/24 15:54 Pulse 74 12/30/24 15:54 BP 110/70 12/30/24 15:54 Pulse Ox 100 12/30/24 15:54 Oxygen Delivery Method Room Air 12/30/24 15:54 BMI result Body Mass Index 32.5 Assessment & Plan Assessment & Plan (1) Ear pain, right: Code(s): H92.01 - Otalgia, right ear Plan Most likely OM vs OE vs effusion plan - start Augmentin BID and polymyxin drops in the ear for 1 week - tylenol or motrin as needed - avoid q-tips in the ears - avoid getting water in the ears - follow up if pain does not resolve Medications: New ihtsveqo-koehibywt-JW 3.5-10,000-1 mg/mL-unit/mL-% 4 drps otic (ears) Q8H 10 mL 0RF 7 days amoxicillin-pot clavulanate 875-125 mg 1 tab PO Q12H 14 tabs 0RF Coding Level of Care Code Est Pt Level 3 (29133) Diagnoses Ear pain, right H92.01
== END 2024-12-30 16:45 | disposition home or self-care (01) ==
PROVIDERS: PCP Nurse Practitioner Family; Visit Provider Physician Assistant Medical
DX: H92.01 Otalgia, right ear (principal)

== ENCOUNTER 2025-02-18 12:08 | Outpatient (AMB) | payer BC, SELFPAY ==
--- NOTE | 2025-02-18 12:11 | AM.OFFWIN_ITS ---
Intake Vital Signs 02/18/25 12:13 Height 6 ft 3 in Weight 262 lb BMI 32.7 BP 112/70 Blood Pressure Location Lt brachial Position Sitting Pulse 80 Pulse Source Pulse Oximeter Temp 97.3 F Temp Source Oral Pulse Oximetry (%) 100 Oxygen Delivery Method Room Air Intake Visit Reasons: EP Left ear pain Intake Note: Patient presents c/o left ear pain x1 month Patient Tobacco Use Status: Current someday Tobacco user Allergies No Known Allergies Allergy (Verified 02/18/25 12:15) HPI HPI Comments History of Present Illness Details History - The patient is a 39-year-old male pres enting with left ear pain. - He reports intermittent symptoms for t he last three weeks, which have significantly worsened over the past 2-3 days. - Associated symptoms include some drain age of a discolored nature, reduced hearing described as muddier on the left side, and pain behind the jaw and when pulling on the auricle. - He denies fevers or recent submersion in water. - His past medical history is significan t for a right ear infection about two months ago. - He has no history of diabetes and no k nown allergies to penicillin. [facility] Medical History Obesity (BMI 30-39.9) Surgical History History of repair of vocal cord Social History Housing: House Alcohol intake: current Patient Tobacco Use Status: Current someday Tobacco user Tobacco use type: Cigar Cigarette Packs Per Day: 1 e-Cigarette/Vaping Use: Never Used Second Hand Smoke Exposure: No service: Yes Current occupational status: employed Current occupation: [employer] Current occupational exposures/hazards: No Cognitive needs: No Hearing needs: No Vision needs: Yes Review of Systems Narrative Review of Systems - Ears: Reports left ear pain, intermittent for 3 weeks and worse for 2-3 days. - Reports some drainage from the left ear, of a not great color . - Reports decreased hearing on the left side. - Reports itching and pain with manipulation of the auricle. - Neurological: Reports pain behind the jaw. - Constitutional: Denies fever. All systems reviewed and are unremarkable except as noted in HPI Physical Exam Exam Exam: Physical Exam General: Cooperative, healthy appearing, comfortable, no acute distress and well developed Orientation: Patient oriented x3 Limitations: No limitations Head: Normal to inspection Ears: External ears normal bilaterally, TM's with impacted cerumen bilaterally, left EAC with erythema and edema and tenderness, drainage noted, TM left with purulence Face and sinus: Normal facial exam Neck: Normal visual inspection and Yes full ROM Respiratory: Normal respiratory effort and able to speak in complete sentences. Skin: No rashes or lesions noted Neuro: Patient oriented x3 Extremities: normal to inspection Vital Signs: Last Vital Signs Temp 97.3 F 02/18/25 12:13 Pulse 80 02/18/25 12:13 BP 112/70 02/18/25 12:13 Pulse Ox 100 02/18/25 12:13 Oxygen Delivery Method Room Air 02/18/25 12:13 BMI result Body Mass Index 32.7 Assessment & Plan Assessment & Plan (1) Otitis media: Code(s): H66.90 - Otitis media, unspecified, unspecified ear Qualifiers: Chronicity: acute Laterality: left Otitis media type: suppurative Recurrence: recurrent Spontaneous tympanic membrane rupture: without spontan eous rupture Qualified Code(s): H66.005 - Acute suppurative otitis media without spontaneous rupture of ear drum, recurrent, left ear Plan: Plan - Prescribed ear drops to be administered every 8 hours for seven days to treat otitis externa. - Prescribed a 5-day course of oral amoxicillin for otitis media, as the inf ection is considered to be beyond just the canal. - Both prescriptions were sent to the patient's preferred pharmacy, [facility]. - Advised the patient that recurrent ear infections in an adult are atypical. - Recommended a consultation with an Ear, Nose, and Throat (ENT) specialist if the ear infections continue to recur. Patient was informed and verbally consented to the use of an ambient scribe for clinic note documentation during this visit. (2) Otitis externa: Code(s): H60.90 - Unspecified otitis externa, unspecified ear Qualifiers: Chronicity: acute Laterality: left Otitis externa type: other i nfective Qualified Code(s): H60.392 - Other infective otitis externa, left ear Plan: as above Medications: New amoxicillin 875 mg PO Q12H 10 tabs 0RF kosuzvjz-oflksmvre-JV 3.5-10,000-1 mg/mL-unit/mL-% 4 drps otic (ear) left QID 10 mL 0RF 7 days Coding Level of Care Code Est Pt Level 3 (08359) Diagnoses Recurrent acute suppurative otitis media without spontaneous rupture of left tympanic membrane H66.005 Chronicity: acute Laterality: left Otitis media type: suppurative Recurrence: recurrent Spontaneous tympanic membrane rupture: without spontaneous rupture Other infective acute otitis externa of left ear H60.392 Chronicity: acute Laterality: left Otitis externa type: other infective
[2025-02-18 12:13] VITALS: BP 112/70; PULSE 80; TEMP 36.3; O2SAT 100; BMI 32.7
== END 2025-02-18 12:34 | disposition home or self-care (01) ==
PROVIDERS: PCP Nurse Practitioner Family; Visit Provider Physician Assistant
DX: H66.005 Acute suppurative otitis media without spontaneous rupture of ear drum, recurrent, left ear (principal); H60.392 Other infective otitis externa, left ear